=== PATIENT | female | born 1965 | race Caucasian/White ===

== ENCOUNTER 2019-01-02 09:38 | Day surgery (SDC) | payer MEDICARE, MEDICAID, SELFPAY | END 2019-01-02 09:40 | disposition home or self-care (01) | PROVIDERS: PCP Family Medicine; Visit Provider Specialist ==

== ENCOUNTER → 2019-02-07 08:38 | Outpatient (CLI) | payer MEDICARE, MEDICAID, SELFPAY ==
--- NOTE | 2019-02-07 | DI.MG.S_ITS ---
BILATERAL DIGITAL SCREENING MAMMOGRAM 3D/2D WITH CAD: 02/07/2019 CLINICAL: Routine screening. Family history of breast cancer. Comparison is made to exams dated: 02/06/2018 mammogram, 08/27/2013 mammogram, and 08/30/2006 mammogram - [facility]. There are scattered fibroglandular elements in both breasts. Current study was also evaluated with a Computer Aided Detection (CAD) system. No significant masses, calcifications, or other findings are seen in either breast. There has been no significant interval change. IMPRESSION: NEGATIVE There is no mammographic evidence of malignancy. A 1 year screening mammogram is recommended. This exam was interpreted at Station ID: [id number]. NOTE: For mammograms, a report in lay terms will be sent to the patient. Approximately 15% of breast malignancies will not be visualized mammographically. In the management of a palpable breast mass, a negative mammogram must not discourage biopsy of a clinically suspicious lesion. Electronically Signed By: Nazario bliss/lewis:02/07/2019 16:50:38 letter sent: Normal Exam ACR BI-RADS Category 1: Negative 3341F
== END ==
PROVIDERS: PCP Family Medicine; Visit Provider Family Medicine
DX: Z12.31 Encounter for screening mammogram for malignant neoplasm of breast (principal); Z80.3 Family history of malignant neoplasm of breast
CPT/HCPCS: 77063; 77067

== ENCOUNTER → 2020-02-11 15:10 | Outpatient (CLI) | payer MEDICARE, MEDICAID, SELFPAY ==
--- NOTE | 2020-02-11 15:12 | DI.MG.S_ITS ---
BILATERAL DIGITAL SCREENING MAMMOGRAM 3D/2D WITH CAD: 02/11/2020 CLINICAL: Routine screening. Family history of breast cancer. Comparison is made to exams dated: 02/07/2019 mammogram - [facility], 02/06/2018 mammogram, and 08/27/2013 mammogram - [facility]. There are scattered fibroglandular elements in both breasts. Current study was also evaluated with a Computer Aided Detection (CAD) system. No significant masses, calcifications, or other findings are seen in either breast. There has been no significant interval change. IMPRESSION: NEGATIVE There is no mammographic evidence of malignancy. A 1 year screening mammogram is recommended. This exam was interpreted at Station ID: [id number]. NOTE: For mammograms, a report in lay terms will be sent to the patient. Approximately 15% of breast malignancies will not be visualized mammographically. In the management of a palpable breast mass, a negative mammogram must not discourage biopsy of a clinically suspicious lesion. Electronically Signed By: Shannan walton/lewis:02/11/2020 16:03:27 letter sent: Normal Exam ACR BI-RADS Category 1: Negative 3341F
== END ==
PROVIDERS: PCP Family Medicine; Referring Provider Family Medicine; Visit Provider Family Medicine
DX: Z12.31 Encounter for screening mammogram for malignant neoplasm of breast (principal); Z80.3 Family history of malignant neoplasm of breast
CPT/HCPCS: 77063; 77067

== ENCOUNTER → 2021-07-14 09:34 | Outpatient (CLI) | payer MEDICARE, MEDICAID, SELFPAY ==
[2021-07-14 13:36] LABS: Alanine Aminotransferase 13 IU/L (<35); Albumin 4.5 g/dL (3.5-5.0); Albumin Globulin Ratio 1.4 (1.0-2.8); Alkaline Phosphatase 127 U/L (38-126); Aspartate Aminotransferase 28 IU/L (14-36); BUN Creatinine Ratio 19.8 (6-22); Bilirubin Total 0.4 mg/dL (0.2-1.3); Blood Urea Nitrogen 19 mg/dL (7-17); Calcium 9.4 mg/dL (8.4-10.2); Carbon Dioxide 27 mmol/L (22-32); Chloride 107 mmol/L (98-107); Estimated Glomerular Filt Rate > 60.0 mL/min (>60); Globulin 3.3 g/dL (1.7-4.1); Glucose 89 mg/dL (70-100); HEMOLYSIS < 15 (0-50); Potassium 5.3 mmol/L (3.4-5.1); Sodium 144 mmol/L (137-145); Total Protein 7.8 g/dL (6.3-8.2)
== END ==
PROVIDERS: PCP Family Medicine; Referring Provider Psychiatry & Neurology Psychiatry; Visit Provider Psychiatry & Neurology Psychiatry
DX: F32.9 Major depressive disorder, single episode, unspecified (principal)
CPT/HCPCS: 36415; 80053

== ENCOUNTER → 2022-04-13 13:53 | Outpatient (CLI) | payer MEDICARE, MEDICAID, SELFPAY ==
--- NOTE | 2022-04-13 13:54 | DI.MG.S_ITS ---
BILATERAL DIGITAL SCREENING MAMMOGRAM 3D/2D WITH CAD: 04/13/2022 CLINICAL: Routine screening. Comparison is made to exams dated: 02/11/2020 mammogram, 02/07/2019 mammogram - [facility], and 02/06/2018 mammogram - [facility]. There are scattered areas of fibroglandular density in both breasts (category b / 25%-50% glandular tissue). Current study was also evaluated with a Computer Aided Detection (CAD) system. No significant masses, calcifications, or other findings are seen in either breast. There has been no significant interval change. IMPRESSION: NEGATIVE There is no mammographic evidence of malignancy. A 1 year screening mammogram is recommended. Based on the Tyrer Cuzick model (a risk assessment model) the patient's lifetime risk is 9.7% and her 10 year risk is 2.9%. According to the ACR, ACS, and NCCN guidelines, an annual breast MRI exam along with mammogram is recommended if the patient's lifetime risk is 20% or greater. This exam was interpreted at Station ID: [id number]. NOTE: For mammograms, a report in lay terms will be sent to the patient. Approximately 15% of breast malignancies will not be visualized mammographically. In the management of a palpable breast mass, a negative mammogram must not discourage biopsy of a clinically suspicious lesion. Electronically Signed By: Mamta torres/lewis:04/13/2022 16:03:33 letter sent: Normal Exam ACR BI-RADS Category 1: Negative 3341F
== END ==
PROVIDERS: PCP Family Medicine; Referring Provider Family Medicine; Visit Provider Family Medicine
DX: Z12.31 Encounter for screening mammogram for malignant neoplasm of breast (principal)
CPT/HCPCS: 77063; 77067

== ENCOUNTER 2022-09-28 08:05 | Day surgery (SDC) | payer MEDICARE, MEDICAID, SELFPAY ==
[2022-09-28] VITALS (9 sets, daily range): BP systolic 112–133; BP diastolic 57–80; PULSE 55–82; RESP 14–20; TEMP 36.3–36.7; O2SAT 99–100; BMI 21.9
[2022-09-28] MEDS: LACTATED RINGERS 1,000 ML 200 ML IV (08:40)
--- NOTE | 2022-09-28 09:01 | P.HP_ITS ---
History of Present Illness History of Present Illness Date Patient Seen: 09/28/22 Time Patient Seen: 09:01 Chief complaint: Screening Colonoscopy Narrative: The patient presents for colorectal screening. They have never had any previous examination for such. No personal or family history of colon cancer. On further history denies any recent gastrointestinal symptoms. No nausea, vomiting, abdominal pain, loss of appetite, unexplained weight loss. [facility] Social History household members: family Smoking Status: Never smoker alcohol intake: never Meds Home Medications and Allergies Home Medications Medication Instructions Recorded Confirmed Type omeprazole 40 mg capsule,delayed 40 mg QDAY ##0 02/18/16 09/28/22 History release atorvastatin 20 mg tablet 20 mg PO DAILY 03/23/22 09/28/22 History lorazepam 0.5 mg tablet 0.5 mg PO BID PRN anxiety 30 days 07/01/22 09/28/22 Rx #60 tabs lorazepam 1 mg tablet 1 mg PO BID #60 tabs 07/01/22 09/28/22 Rx paroxetine HCl 40 mg tablet 40 mg PO QDAY #90 tabs 07/12/22 09/28/22 Rx carbamazepine 200 mg 400 mg PO TID #540 caps 07/27/22 09/28/22 Rx tablet,extended release,12 hr (Tegretol XR) topiramate 25 mg sprinkle capsule 25 mg PO BID #180 tabs 07/27/22 09/28/22 Rx trazodone 100 mg tablet 100 mg PO HS #90 tabs 07/27/22 07/27/22 Rx peg 3350-electrolytes 236 240 ml PO Q10M #4,000 mL 09/20/22 Rx gram-22.74 gram-6.74 gram-5.86 gram solution (Golytely) Allergies Allergy/AdvReac Type Severity Reaction Status Date / Time Sulfa (Sulfonamide Allergy Mild RASH Verified 09/28/22 08:20 Antibiotics) [SULFA (SULFONAMIDE ANTIBIOTICS)] codeine [CODEINE] Allergy Unknown Verified 09/28/22 08:20 adalimumab [From Humira] Allergy Rash Verified 09/28/22 08:20 Exam Vital Signs (past 8 hours): - 09/28/22 08:34 Temperature 98.0 F Pulse Rate 82 Respiratory Rate 16 Blood Pressure 133/80 Pulse Oximetry 100 Oxygen Delivery Method Room Air Oxygen Delivery Method Room Air Narrative Exam Narrative: Gen-Adult woman alert and oriented blind and hearing impaired Ext-WWP Assessment & Plan Assessment & Plan narrative: The patient requires colorectal screening and colonoscopy is recommended. Technical details were discussed. Risks, benefits, alternatives explained. Risks including but not limited to myocardial infarction, aspiration, bleeding, pain, missed lesion, incomplete examination, need for further radiographic studies, colonic perforation, and need for major abdominal surgery were discussed. All questions were answered to their satisfaction, and they are in agreement with this plan.
--- NOTE | 2022-09-28 09:31 | PM.OP.COLON ---
Operative Date/Time/Diagnoses Date of procedure: 09/28/22 Time of procedure: 09:31 Pre-op diagnosis: Colorectal screening Post-op diagnosis: same Procedure & Clinicians Study performed: Colonoscopy-aborted Same procedure as scheduled: Yes Indications: Colorectal screening Surgeon: Duane Jaquez Procedure Notes Procedure in detail: The history and physical was performed/updated and the patient is ASA class is 2. The procedure was discussed in detail with the patient. Potential risks complications including infection, bleeding, missed diagnosis, perforation, need for surgery, and were explained. Their questions were answered and informed consent was obtained. Patient was brought to the procedure room and placed standard monitoring equipment. The patient's vital signs were monitored continuously throughout the entire procedure. Prior to starting time-out was performed. The patient was placed in the left lateral recumbent position. Procedural sedation was administered by anesthesia. Examination began with a thorough inspection of the perianal area there was no evidence of fissures, fistulae, external hemorrhoids or cutaneous malignancy. The colonoscopy scope was then placed into the anal canal and was advanced forward. Despite irrigation the quality of the preparation was inadequate for safe and accurate performance of the procedure. Impression: Aborted colonoscopy Post-procedure Plan for aftercare: Contact the surgical clinic to schedule with alternative prep Disposition: same day surgery
[2022-09-28] MEDS: LORazepam 2 MG/ML INJ 0.5 MG IV (09:58)
--- NOTE | 2022-09-28 10:00 | SUR.PHASEI ---
Patient feels like she is going to have a seizure but not actively having a seizure. I spoke to Chito Chow CRNA on this case and stated he was okay if she got a dose of IV lorazepam in PACU. Jasmyn Roblero RN
== END 2022-09-28 10:45 | disposition home or self-care (01) ==
PROVIDERS: PCP Family Medicine; Referring Provider Surgery; Visit Provider Surgery
PROC: 0DJD8ZZ Inspection of Lower Intestinal Tract, Via Natural or Artificial Opening Endoscopic (ICD-10-PCS; CPT 45378; principal; 2022-09-28 09:00)
DX: Z12.11 Encounter for screening for malignant neoplasm of colon (principal); Z53.09 Procedure and treatment not carried out because of other contraindication
CPT/HCPCS: G0121; J2060

== ENCOUNTER 2023-03-14 15:01 | Inpatient (IN) | payer MEDICARE, OTHER, MEDICAID, SELFPAY ==
[2023-03-14] VITALS (27 sets, daily range): BP systolic 113–170; BP diastolic 49–86; PULSE 90–128; RESP 13–38; TEMP 36.6; O2SAT 93–100
--- NOTE | 2023-03-14 15:15 | DI.RAD.S_ITS ---
PROCEDURE: XR CHEST 1V INDICATIONS: suspected sepsis TECHNIQUE: One view of the chest was acquired. COMPARISON: None. FINDINGS: Surgical changes and devices: None. Lungs and pleura: Lungs are clear. No pleural effusions or pneumothorax. Mediastinum: Mediastinal contours appear normal. Heart size is normal. Bones and chest wall: No suspicious bony lesions. Overlying soft tissues appear unremarkable. IMPRESSION: No acute cardiopulmonary abnormality. Dictated by: Andrew Rodriguez M.D. on 03/14/2023 at 16:58 Approved by: Andrew Rodriguez M.D. on 03/14/2023 at 16:58
--- NOTE | 2023-03-14 15:28 | DI.CT.S_ITS ---
PROCEDURE: CT HEAD/BRAIN WO CON INDICATIONS: altered ms, hx seizure TECHNIQUE: Noncontrast 4.5 mm thick angled axial sections acquired from the foramen magnum to the vertex, with coronal and sagittal reformats. For radiation dose reduction, the following was used: automated exposure control, adjustment of mA and/or kV according to patient size. COMPARISON: None. FINDINGS: Image quality: Excellent. CSF spaces: Basal cisterns are patent. No extra-axial fluid collections. Ventricles are normal in size and shape. Brain: No midline shift. No intracranial masses or hemorrhage. Kiran-white matter interface is normal. Skull and face: Calvarium and visualized facial bones are intact, without suspicious lesions. Sinuses: Visualized sinuses and mastoids are clear. IMPRESSION: No acute intracranial pathology. Dictated by: Dasia Linares M.D. on 03/14/2023 at 16:06 Approved by: Dasia Linares M.D. on 03/14/2023 at 16:07
[2023-03-14 15:41] LABS: Add Manual Diff / Slide Review NO; Basophils Absolute Auto 0 /uL (0-100); Eosinophils Absolute Auto 0 /uL (0-450); Hematocrit 38.9 % (36-46); Hemoglobin 13.2 g/dL (12.0-16.0); Lymphocytes Absolute Auto 300 /uL (1100-4500); Lymphocytes Percent Auto 2.4 % (25-40); Mean Corpuscular HGB Conc 33.9 % (30-36); Mean Corpuscular Hemoglobin 33.2 PG (26-34); Mean Corpuscular Volume 97.7 fL (80-100); Monocytes Absolute Auto 1300 /uL (0-900); Neutrophils Absolute Auto 11000 /uL (1500-7000); Neutrophils Percent Auto 87.6 % (50-75); Platelet Count 317 X10^3/uL (150-400); Red Blood Cell Count 3.98 X10^6/uL (4.0-5.2); Red Cell Distribution Width 12.3 % (11.6-14.8); White Blood Cell Count 12.6 X10^3/uL (4.5-11.0)
[2023-03-14] MEDS: SODIUM CHLORIDE 0.9% 1,000 ML 1000 ML IV (15:45)
[2023-03-14 15:51] LABS: INR 1.1 (0.9-1.3); Prothrombin Time 12.9 SECONDS (9.4-12.5)
[2023-03-14 15:54] LABS: PTT Partial Thromboplastin Tim 26 SECONDS (25.1-36.5)
[2023-03-14 15:57] LABS: Alanine Aminotransferase 40 IU/L (<35); Albumin 4.3 g/dL (3.5-5.0); Albumin Globulin Ratio 1.2 (1.0-2.8); Alkaline Phosphatase 100 U/L (38-126); Aspartate Aminotransferase 67 IU/L (14-36); BUN Creatinine Ratio 53.1 (6-22); Bilirubin Total 0.6 mg/dL (0.2-1.3); Blood Urea Nitrogen 34 mg/dL (7-17); Carbon Dioxide 30 mmol/L (22-32); Chloride 98 mmol/L (98-107); Estimated Glomerular Filt Rate > 60 mL/min (>60); Globulin 3.7 g/dL (1.7-4.1); Glucose 296 mg/dL (70-100); HEMOLYSIS < 15 (0-50); Lipase 86 U/L (23-300); Sodium 139 mmol/L (137-145)
[2023-03-14 16:03] LABS: Ethanol (ETOH) < 10 mg/dL
[2023-03-14 16:13] LABS: Procalcitonin 0.08 ng/mL (<0.5)
--- NOTE | 2023-03-14 16:21 | PC.NURSE ---
PT A&Ox1 to self, pt is mumbling words and is rambling. Pt is completely blind. Pt's niece states she is the pt's caregiver. Niece is not the best historian. She does state that over the last few days she has stopped eating, drinking, and taking medications. Pt has a pressure wound on coccyx. [employer] consult plcaed.
[2023-03-14 16:22] LABS: Appearance Urine UA CLEAR; Bilirubin Urine UA 1+ (NEGATIVE); Color Urine UA YELLOW; Glucose Urine UA 2+ g/dL (Negative); Ketones Urine UA 3+ (NEGATIVE); Leukocyte Esterase Urine UA NEGATIVE (NEGATIVE); Nitrite Urine UA NEGATIVE (Negative); Occult Blood Urine UA NEGATIVE (Negative); Protein Urine UA 1+ (Negative); Specific Gravity Urine UA 1.025 (1.000-1.035)
[2023-03-14 16:23] LABS: pH Urine UA 5.5 (4.5-8.0)
[2023-03-14 16:34] LABS: Bacteria Urine None Seen; Culture Indicated Urine Cult Not Indicated; RBC Urine None Seen (0-5/HPF); Squamous Epithelial Cell Urine 0-1 /HPF (0-5/HPF); WBC Urine None Seen (0-5/HPF)
[2023-03-14 16:40] LABS: UR Morphine/Opiate cutoff 300 Negative (Negative); Urine Amphetamines Negative (Negative); Urine Barbiturates Negative (Negative); Urine Benzodiazepines Negative (Negative); Urine Cocaine Negative (Negative); Urine MDMA Negative (Negative); Urine Methamphetamines Negative (Negative); Urine Phencyclidine Negative (Negative); Urine Tetrahydrocannabinol Positive (Negative)
[2023-03-14 16:41] LABS: Urine Methadone Negative (Negative); Urine Oxycodone Negative (Negative); Urine Tricyclic Antidepressant Negative (Negative)
[2023-03-14 17:17] LABS: Reflexed Lactate in 2 Hours Y
[2023-03-14 17:55] LABS: Lactate 2HR (Lactic Acid Rflx) 1.5 mmol/L (0.7-2.1)
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
--- NOTE | 2023-03-14 18:39 | PC.NURSE ---
Pt continues to ramble to herself, and states she thinks her teeth and tonsils were removed, pt then opens mouth to try and show me. RN attempts to re-orient pt. Pt also counts out loud and increases her rate of breathing, when RN asks pt to slow breathing and to breath in through her nose and out her mouth, pt is able to slow rate of breathing.
--- NOTE | 2023-03-14 20:20 | DI.US.S_ITS ---
PROCEDURE: US ABDOMEN LIMITED INDICATIONS: ABNORMAL LIVER LABS TECHNIQUE: Real-time focused scanning was performed of the abdomen, with image documentation. COMPARISON: None. FINDINGS: Liver is normal in size and echogenicity. Gallbladder contains multiple tiny shadowing gallstones and gallbladder sludge. No gallbladder wall thickening or pericholecystic fluid. Sonographic Baugh sign is negative. Gallbladder adenomyomatosis also noted. No intrahepatic biliary ductal dilatation. Common bile duct is borderline in size and measures 7 mm in diameter. Visualized portions of the pancreas are unremarkable. No free fluid in the right upper quadrant. IMPRESSION: Cholelithiasis without signs of acute cholecystitis. Common bile duct is upper limits of normal in size. Approved by: Yovany Arteaga M.D. on 03/14/2023 at 23:41
[2023-03-14] MEDS: KETOROLAC 30 MG/ML VIAL 15 MG IV (20:57)
[2023-03-15 00:38] VITALS: BMI 18.1
[2023-03-15 00:51] VITALS: BP 131/75; PULSE 81; RESP 16; TEMP 36.6; O2SAT 98
[2023-03-15] MEDS: SODIUM CHLORIDE 0.9% 1,000 ML 100 ML IV (01:12)
[2023-03-15] MEDS: TRAZODONE 50 MG TABLET 100 MG PO ×2 (01:15→21:15)
--- NOTE | 2023-03-15 02:13 | P.HP_ITS ---
History of Present Illness History of Present Illness Chief complaint: Confused, epileptic, NO appetite Narrative: 57 years old female with history of longstanding depression, anxiety, sleep disturbance, chronic hearing loss more on the right side, blind requiring assistance, hyperlipidemia, GERD, seizure presented to the ER with altered mental status.. She lives with her niece who is her primary caregiver and there was a concern that the niece is trying to get into her medications. She has not been taking her medications in the last couple of days. Reports some nausea but no vomiting, no fever no shortness of breath. She has been seen by her psychiatrist recently and there was not any change of her home medications. The patient was increasingly anxious because of her knees and knees both have substance issue problems. In the ER her initial labs showed WBC 12.6, H&H 13.2?38.9, platelets 317, INR 1.1, sodium 139, potassium 4, creatinine 0.64, blood sugar 296, lactic acid 1.5, UA negative, AST/ALT 67/40, UA negative, U tox positive for THC, chest x-ray normal, CT of the head unremarkable, abdominal ultrasound shows cholelithiasis but no signs of acute cholecystitis. In the ER she was given ketorolac 15 mg IV, NS 1 L bolus and was decided to be admitted for observation. [facility] Social History household members: family Smoking Status: Never smoker alcohol intake: never Meds Home Medications and Allergies Home Medications Medication Instructions Recorded Confirmed Type omeprazole 40 mg capsule,delayed 40 mg QDAY ##0 02/18/16 09/28/22 History release atorvastatin 20 mg tablet 20 mg PO DAILY 03/23/22 09/28/22 History carbamazepine 200 mg 400 mg (2 x 200 mg) PO TID #540 07/27/22 09/28/22 Rx tablet,extended release,12 hr caps (Tegretol XR) topiramate 25 mg sprinkle capsule 25 mg PO BID #180 tabs 07/27/22 09/28/22 Rx trazodone 100 mg tablet 100 mg PO HS #90 tabs 07/27/22 07/27/22 Rx lorazepam 0.5 mg tablet 0.5 mg PO BID PRN anxiety 30 days 12/27/22 Rx #60 tabs lorazepam 1 mg tablet 1 mg PO BID #60 tabs 12/27/22 Rx paroxetine HCl 40 mg tablet 40 mg PO QDAY #90 tabs 01/19/23 Rx Allergies Allergy/AdvReac Type Severity Reaction Status Date / Time Sulfa (Sulfonamide Allergy Mild RASH Verified 03/14/23 15:13 Antibiotics) [SULFA (SULFONAMIDE ANTIBIOTICS)] codeine [CODEINE] Allergy Unknown Verified 03/14/23 15:13 adalimumab [From Humira] Allergy Rash Verified 03/14/23 15:13 Review of Systems Review of Systems ROS: Yes All systems reviewed with the patient and are negative except as otherwise documented Constitutional Constitutional: Reports as per HPI and Reports system reviewed and no additional complaints, except as documented Eyes Eyes: Reports as per HPI and Reports system reviewed and no additional complaints, except as documented ENT Ears, Nose, Mouth, and Throat: Yes as per HPI and Yes system reviewed and no additional complaints, except as documented Cardiovascular Cardiovascular: Reports system reviewed and no additional complaints, except as documented Respiratory Respiratory: Reports system reviewed and no additional complaints, except as documented Gastrointestinal Gastrointestinal: Reports system reviewed and no additional complaints, except as documented Genitourinary Genitourinary: Reports system reviewed and no additional complaints, except as documented Musculoskeletal Musculoskeletal: Reports system reviewed and no additional complaints, except as documented, Reports abnormal gait and Reports numbness Neurologic Neurologic: Reports system reviewed and no additional complaints, except as documented, Reports abnormal gait, Reports confusion and Reports numbness Psychiatric Psychiatric: Reports system reviewed and no additional complaints, except as documented and Reports confusion Exam Vital Signs (past 8 hours): - 03/14/23 18:30 03/14/23 18:31 03/14/23 18:31 Temperature Pulse Rate 97 H 97 H Respiratory Rate 36 H 36 H Blood Pressure 130/61 Pulse Oximetry 97 98 Oxygen Flow Rate 03/14/23 19:00 03/14/23 19:01 03/14/23 19:05 Temperature Pulse Rate 95 H 94 H Respiratory Rate 32 H Blood Pressure 144/72 H Pulse Oximetry 98 96 Oxygen Flow Rate 03/14/23 19:05 03/14/23 19:30 03/14/23 20:00 Temperature Pulse Rate 100 H 92 H Respiratory Rate 38 H Blood Pressure 127/73 Pulse Oximetry 98 97 Oxygen Flow Rate 03/14/23 20:00 03/14/23 20:30 03/14/23 21:00 Temperature Pulse Rate 96 H 90 Respiratory Rate 34 H 28 H Blood Pressure 122/67 Pulse Oximetry 95 Oxygen Flow Rate 03/14/23 21:00 03/14/23 21:30 03/14/23 22:00 Temperature Pulse Rate 92 H 98 H 123 H Respiratory Rate 32 H 28 H 32 H Blood Pressure Pulse Oximetry 99 98 97 Oxygen Flow Rate 03/14/23 22:30 03/14/23 23:00 03/14/23 23:10 Temperature Pulse Rate 123 H 96 H Respiratory Rate 23 29 H Blood Pressure 130/61 Pulse Oximetry 98 97 Oxygen Flow Rate 03/14/23 23:10 03/14/23 23:30 03/15/23 00:51 Temperature 97.8 F Pulse Rate 96 H 100 H 81 Respiratory Rate 31 H 27 H 16 Blood Pressure 131/75 Pulse Oximetry 97 97 98 Oxygen Flow Rate 0 Oxygen Delivery Method Room Air Oxygen Flow Rate 0 Const General: cooperative, comfortable and well developed Orientation: alert and oriented x3 HENMT Head: normal to inspection, normocephalic and atraumatic Face and sinus: normal facial exam Mouth: oral mucosae normal and moist mucous membranes Throat: posterior oropharynx normal Eyes General: appearance normal, both eyes and all related structures Pupils: PERRL EOM: EOM intact bilaterally Neck Neck: normal visual inspection and full ROM Chest Chest: normal inspection of the chest Resp Effort & Inspection: normal respiratory effort and able to speak in complete sentences Auscultation: clear to auscultation bilaterally Cardio Palpation: normal PMI Rate: regular rate Rhythm: regular rhythm Heart Sounds: S1 normal and S2 normal GI Inspection: normal to inspection Palpation: soft and no hepatosplenomegaly Auscultation: normal bowel sounds Skin General: no rashes or lesions noted Lesions: no lesions Rashes: no rashes Trauma: no lacerations or abrasions Neuro General: patient alert, patient awake, patient oriented x3 and no focal motor deficits Cranial Nerves: CN's II-XI intact bilaterally Cognition: normal cognition Speech: speech normal Gait: normal gait Motor: muscle tone normal throughout Sensory Exam: no sensory deficits noted Extrem General: full ROM and no calf tenderness Psych Appearance: grossly normal Mental Status: mental status grossly normal Speech and Movement: speech and movement normal Objective Labs 03/14/23 15:26 03/14/23 15:26 Labs: Laboratory Results - last 24 hr 12/04/23 12/04/23 12/04/23 15:26 16:10 17:30 WBC 12.6 H RBC 3.98 L Hgb 13.2 Hct 38.9 MCV 97.7 MCH 33.2 MCHC 33.9 RDW 12.3 Plt Count 317 Neut % (Auto) 87.6 H Lymph % (Auto) 2.4 L [place] % (Auto) 10.0 Eos % (Auto) 0.0 L Baso % (Auto) 0.0 Neut # (Auto) 15176 H Lymph # (Auto) 300 L [place] # (Auto) 1300 H Eos # (Auto) 0 Baso # (Auto) 0 PT 12.9 H INR 1.1 APTT 26 Sodium 139 Potassium 4.0 Chloride 98 Carbon Dioxide 30 BUN 34 H Creatinine 0.64 Estimated GFR > 60 BUN/Creatinine Ratio 53.1 H Glucose 296 H Lactate 4.0 H 1.5 Calcium 10.0 Total Bilirubin 0.6 AST 67 H ALT 40 H Alkaline Phosphatase 100 Total Protein 8.0 Albumin 4.3 Globulin 3.7 Albumin/Globulin Ratio 1.2 Lipase 86 Procalcitonin 0.08 Urine Color Yellow Urine Appearance Clear Urine pH 5.5 Ur Specific [place] 1.025 Urine Protein 1+ H Urine Glucose (UA) 2+ H Urine Ketones 3+ H Urine Occult Blood Negative Urine Nitrate Negative Urine Bilirubin 1+ H Ur Bilirubin Confirm Cancelled Urine Urobilinogen 1.0 Ur Leukocyte Esterase Negative Urine RBC None seen Urine WBC None seen Ur Squamous Epith Cells 0-1 /hpf Urine Bacteria None seen Ur Culture Indicated? Cult not indicated U Opiates 300ng/mL cut Negative Ur Oxycodone Screen Negative Urine Methadone Screen Negative Ur Barbiturates Screen Negative U Tricyclic Antidepress Negative Ur Phencyclidine Scrn Negative Ur Amphetamines Screen Negative U Methamphetamines Scrn Negative Ur MDMA Scrn (Ecstasy) Negative U Benzodiazepines Scrn Negative Urine Cocaine Screen Negative U Marijuana (THC) Screen Positive H Ethyl Alcohol < 10 Assessment & Plan Assessment and plan (1) AMS (altered mental status): Problem details: Unclear etiology and baseline Status: Acute Plan: Monitor her mentation Restart her home medications Avoid any sedation causing alteration of her mentation (2) Hyperglycemia: Status: Acute Plan: ADA diet, SSI, monitor blood glucoses ACHS (3) Generalized anxiety disorder: Status: Acute Plan: Restart lorazepam as needed and paroxetine (4) Insomnia: Qualifiers: Insomnia type: other insomnia Qualified Code(s): G47.09 - Other insomnia Status: Chronic Plan: Melatonin as needed (5) Major depressive disorder, recurrent, moderate: Status: Chronic Plan: Restart paroxetine (6) Seizure disorder: Status: Acute Plan: Restart topiramate (7) GERD (gastroesophageal reflux disease): Status: Acute Plan: Restart PPI (8) Hyperlipidemia: Status: Acute Plan: Restart statins Time Spent With Patient Time with patient: 50 to 69 minutes with 50% spent counseling/coordinating care Quality VTE Deep Vein Thrombosis/Pulmonary Embolism Present on Admission: No MIPS - Admit I confirm the patient?s Advance Care Plan is present, Code status is documented, Surrogate decision maker is in patient?s record [If Yes, STOP here]: Yes MIPS - Meds 'Current medications' to include all prescriptions, [id number] products, herbals, cannabis/cannabidiol products, and vitamin/mineral/dietary (nutritional) supplements. I have utilized all available resources to obtain, update, or review the patient?s current medications. [If Yes, STOP here]: Yes
--- NOTE | 2023-03-15 03:51 | PC.NURSE ---
Addendum entered by Arielle Street R.N. 03/15/23 05:55: Pressure injury superficial & scabbed, cleansed with NS pat dry & allevyn dressings apllied. Original Note: Pt. admitted to room 214, oriented to self only & date. Admit assessment not complete R/T patient confusion. Family member did not come with her to the floor. Pt. sleeping most of the his shift bed was padded for seizures precaution & bed alarm activated. Will cont. plan of care & monitor.
[2023-03-15 07:53] VITALS: BP 135/72; PULSE 84; RESP 17; TEMP 37.1; O2SAT 98
[2023-03-15] MEDS: carBAMazepine XR 100 MG TAB 400 MG PO ×3 (09:12→21:15)
[2023-03-15] MEDS: PARoxetine 20 MG TABLET 40 MG PO (09:12)
[2023-03-15] MEDS: ATORVASTATIN 20 MG TABLET PO (09:12)
[2023-03-15] MEDS: TOPIRAMATE 25 MG TABLET PO ×2 (09:13→21:15)
[2023-03-15 09:20] LABS: Alanine Aminotransferase 27 IU/L (<35); Albumin 3.1 g/dL (3.5-5.0); Albumin Globulin Ratio 1.1 (1.0-2.8); Alkaline Phosphatase 70 U/L (38-126); Aspartate Aminotransferase 50 IU/L (14-36); BUN Creatinine Ratio 48.1 (6-22); Bilirubin Total 0.6 mg/dL (0.2-1.3); Blood Urea Nitrogen 26 mg/dL (7-17); Calcium 8.8 mg/dL (8.4-10.2); Carbon Dioxide 26 mmol/L (22-32); Chloride 106 mmol/L (98-107); Estimated Glomerular Filt Rate > 60 mL/min (>60); Globulin 2.8 g/dL (1.7-4.1); Glucose 105 mg/dL (70-100); HEMOLYSIS < 15 (0-50); Potassium 3.7 mmol/L (3.4-5.1); Sodium 139 mmol/L (137-145); Total Protein 5.9 g/dL (6.3-8.2)
[2023-03-15 10:16] LABS: Ammonia (NH3) < 9 umol/L (9-30)
[2023-03-15] MEDS: INSULIN LISPRO 100 UNIT/ML 3ML VIAL SUBCUT ×2 (13:17→17:54)
[2023-03-15 15:00] VITALS: BP 151/74; PULSE 101; RESP 14; TEMP 37.1; O2SAT 95
--- NOTE | 2023-03-15 15:26 | P.PN_ITS ---
Subjective Subjective Interval history: 57 years old female with history of longstanding depression, anxiety, sleep disturbance, chronic hearing loss more on the right side, blind requiring assistance, hyperlipidemia, GERD, seizure presented to the ER with altered mental status. It is not entirely clear as to the etiology but is suspected to be toxic/metabolic at this time. She was able to eat with assistance today, oriented only to person though baseline mentation is unknown. Exam Vital Signs (past 8 hours): - 03/15/23 07:53 Temperature 98.7 F Pulse Rate 84 Respiratory Rate 17 Blood Pressure 135/72 Pulse Oximetry 98 Oxygen Flow Rate 0 Oxygen Delivery Method Room Air Oxygen Flow Rate 0 Narrative Exam Narrative: Gen: lethargic appearing female, falls asleep easily but no acute distress CV: RRR no m/r/g Pulm: CTA b/l Abd; S NT ND Ext; No edema Neuro: oriented to name only, does not know date or month or location Objective Labs 03/14/23 15:26 03/15/23 08:31 Labs: Laboratory Results - last 24 hr 03/14/23 03/14/23 03/14/23 15:26 16:10 17:30 WBC 12.6 H RBC 3.98 L Hgb 13.2 Hct 38.9 MCV 97.7 MCH 33.2 MCHC 33.9 RDW 12.3 Plt Count 317 Neut % (Auto) 87.6 H Lymph % (Auto) 2.4 L [place] % (Auto) 10.0 Eos % (Auto) 0.0 L Baso % (Auto) 0.0 Neut # (Auto) 79358 H Lymph # (Auto) 300 L [place] # (Auto) 1300 H Eos # (Auto) 0 Baso # (Auto) 0 PT 12.9 H INR 1.1 APTT 26 Sodium 139 Potassium 4.0 Chloride 98 Carbon Dioxide 30 BUN 34 H Creatinine 0.64 Estimated GFR > 60 BUN/Creatinine Ratio 53.1 H Glucose 296 H Lactate 4.0 H 1.5 Calcium 10.0 Total Bilirubin 0.6 AST 67 H ALT 40 H Alkaline Phosphatase 100 Ammonia Total Protein 8.0 Albumin 4.3 Globulin 3.7 Albumin/Globulin Ratio 1.2 Lipase 86 Procalcitonin 0.08 Urine Color Yellow Urine Appearance Clear Urine pH 5.5 Ur Specific [place] 1.025 Urine Protein 1+ H Urine Glucose (UA) 2+ H Urine Ketones 3+ H Urine Occult Blood Negative Urine Nitrate Negative Urine Bilirubin 1+ H Ur Bilirubin Confirm Cancelled Urine Urobilinogen 1.0 Ur Leukocyte Esterase Negative Urine RBC None seen Urine WBC None seen Ur Squamous Epith Cells 0-1 /hpf Urine Bacteria None seen Ur Culture Indicated? Cult not indicated U Opiates 300ng/mL cut Negative Ur Oxycodone Screen Negative Urine Methadone Screen Negative Ur Barbiturates Screen Negative U Tricyclic Antidepress Negative Ur Phencyclidine Scrn Negative Ur Amphetamines Screen Negative U Methamphetamines Scrn Negative Ur MDMA Scrn (Ecstasy) Negative U Benzodiazepines Scrn Negative Urine Cocaine Screen Negative U Marijuana (THC) Screen Positive H Ethyl Alcohol < 10 03/15/23 03/15/23 08:31 09:45 WBC RBC Hgb Hct MCV MCH MCHC RDW Plt Count Neut % (Auto) Lymph % (Auto) [place] % (Auto) Eos % (Auto) Baso % (Auto) Neut # (Auto) Lymph # (Auto) [place] # (Auto) Eos # (Auto) Baso # (Auto) PT INR APTT Sodium 139 Potassium 3.7 Chloride 106 Carbon Dioxide 26 BUN 26 H Creatinine 0.54 Estimated GFR > 60 BUN/Creatinine Ratio 48.1 H Glucose 105 H D Lactate Calcium 8.8 Total Bilirubin 0.6 AST 50 H ALT 27 Alkaline Phosphatase 70 Ammonia < 9 L Total Protein 5.9 L Albumin 3.1 L Globulin 2.8 Albumin/Globulin Ratio 1.1 Lipase Procalcitonin Urine Color Urine Appearance Urine pH Ur Specific [place] Urine Protein Urine Glucose (UA) Urine Ketones Urine Occult Blood Urine Nitrate Urine Bilirubin Ur Bilirubin Confirm Urine Urobilinogen Ur Leukocyte Esterase Urine RBC Urine WBC Ur Squamous Epith Cells Urine Bacteria Ur Culture Indicated? U Opiates 300ng/mL cut Ur Oxycodone Screen Urine Methadone Screen Ur Barbiturates Screen U Tricyclic Antidepress Ur Phencyclidine Scrn Ur Amphetamines Screen U Methamphetamines Scrn Ur MDMA Scrn (Ecstasy) U Benzodiazepines Scrn Urine Cocaine Screen U Marijuana (THC) Screen Ethyl Alcohol [facility] Social History household members: family Smoking Status: Never smoker alcohol intake: never Assessment & Plan Assessment & Plan narrative: # acute toxic and/or metabolic encephalopathy. - suspect most likely etiology given presentation with tachycardia and confusion is benzo withdrawal, there are documented concerns extensively in patient's chart regarding possible diversion of patient's benzodiazepines. - also possibly is post ictal but no evidence of seizure and no prolactin checked on admission - continue home benzos, appears to be improving - ammonia checked and was <9. UA negative and no obvious signs or symptoms of infection. - UDS + for marijuana #Hyperglycemia: - possibly related to stress response? Unclear and glucose has been a bit on the low side. - continue to monitor today, possible cessation if glucose remains okay. #Generalized anxiety disorder: - continue home paroxetine 40 mg #Insomnia: - continue home medications #Major depressive disorder, recurrent, moderate: continue home paroxetine, follows with Dr. Fitzgerald. # Seizure disorder: - continue home topiramate and carbamazepine - ativan prn for seizure activity if any develops. #GERD (gastroesophageal reflux disease): - continue PPI # Hyperlipidemia: continue home atorvastatin 20 mg Code: Full, Dispo: Anticipate probably home, may need PT/OT depending on baseline function and how encephalopathy improves, APS referral sent in the ER Discussed with case management to add additional history and formulate the above assessment and plan. Quality VTE Deep Vein Thrombosis/Pulmonary Embolism Present on Admission: No
[2023-03-15 23:00] VITALS: BP 122/72; PULSE 97; RESP 16; TEMP 36.8; O2SAT 98
--- NOTE | 2023-03-16 04:37 | PC.WOUNDPHOT ---
A. Left Bicep B. Right Bicep C. Right Bicep D. Left Bicep
[2023-03-16] MEDS: ATORVASTATIN 20 MG TABLET PO (09:20)
[2023-03-16 09:27] LABS: Alanine Aminotransferase 26 IU/L (<35); Albumin Globulin Ratio 1.1 (1.0-2.8); Alkaline Phosphatase 72 U/L (38-126); Aspartate Aminotransferase 42 IU/L (14-36); BUN Creatinine Ratio 25.9 (6-22); Bilirubin Total 0.5 mg/dL (0.2-1.3); Blood Urea Nitrogen 14 mg/dL (7-17); Calcium 8.9 mg/dL (8.4-10.2); Carbon Dioxide 27 mmol/L (22-32); Chloride 106 mmol/L (98-107); Estimated Glomerular Filt Rate > 60 mL/min (>60); Globulin 2.7 g/dL (1.7-4.1); Glucose 81 mg/dL (70-100); HEMOLYSIS < 15 (0-50); Potassium 3.7 mmol/L (3.4-5.1); Sodium 138 mmol/L (137-145); Total Protein 5.7 g/dL (6.3-8.2)
--- NOTE | 2023-03-16 11:44 | PM.PN.1 ---
Subjective Subjective Interval history: 57 years old female with history of longstanding depression, anxiety, sleep disturbance, chronic hearing loss more on the right side, blind requiring assistance, hyperlipidemia, GERD, seizure presented to the ER with altered mental status. It is not entirely clear as to the etiology at this time but benzo withdrawal was suspected initially. Today she is talkative but refusing medications. Yesterday she was much improved. She keeps her arms by her chest and answers questions with the least information possible today. I did reach out for psychiatry assistance today, hoping to gain additional recommendations on either medication management or if this is a recurrence of her depression, etc. Exam Vital Signs (past 8 hours): Oxygen Delivery Method Room Air Oxygen Flow Rate 0 Narrative Exam Narrative: Gen: annoyed and irritable, keeps hands close to chest, will not allow any exam Neuro: oriented to name only, does not know date or month or location Objective Labs 03/14/23 15:26 03/16/23 08:11 Labs: Laboratory Results - last 24 hr 03/16/23 08:11 Sodium 138 Potassium 3.7 Chloride 106 Carbon Dioxide 27 BUN 14 Creatinine 0.54 Estimated GFR > 60 BUN/Creatinine Ratio 25.9 H Glucose 81 Calcium 8.9 Total Bilirubin 0.5 AST 42 H ALT 26 Alkaline Phosphatase 72 Total Protein 5.7 L Albumin 3.0 L Globulin 2.7 Albumin/Globulin Ratio 1.1 PFSH Social History household members: family Smoking Status: Never smoker alcohol intake: never Assessment & Plan Assessment & Plan narrative: # acute toxic and/or metabolic encephalopathy. - suspect most likely etiology given presentation with tachycardia and confusion is benzo withdrawal, there are documented concerns extensively in patient's chart regarding possible diversion of patient's benzodiazepines. - also possibly is post ictal but no evidence of seizure and no prolactin checked on admission - continue home benzos, and was improving but today is more annoyed and reserved. I have asked for psychiatry assistance in evaluation as depression or anxiety with psychosis could be in her differential. - ammonia checked and was <9. UA negative and no obvious signs or symptoms of infection. - UDS + for marijuana #Hyperglycemia: - possibly related to stress response? Unclear and glucose has been a bit on the low side. - has been stable the last 24 hours or so, can stop trending. #Generalized anxiety disorder: - continue home paroxetine 40 mg #Insomnia: - continue home medications #Major depressive disorder, recurrent, moderate: continue home paroxetine, follows with Dr. Fitzgerald. # Seizure disorder: - continue home topiramate and carbamazepine - ativan prn for seizure activity if any develops. #GERD (gastroesophageal reflux disease): - continue PPI # Hyperlipidemia: continue home atorvastatin 20 mg Code: Full, Dispo: Anticipate probably home, may need PT/OT depending on baseline function and how encephalopathy improves, APS referral sent in the ER Discussed with case management to add additional history and formulate the above assessment and plan. Quality VTE Deep Vein Thrombosis/Pulmonary Embolism Present on Admission: No
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
--- NOTE | 2023-03-16 14:11 | CM.DANOTE ---
Initial Discharge Plan Assessment Note: Patient is a 57 yo female. According to chart review, long standing hx of depression, anxiety, sleep disturbance and seizure disorder managed by Neurologist Dr Suresh . In addition, chronic hearing loss and blindness since . Patient presents to the ED with oly for confusion and epileptic w/ lack of appetite. Per chart review, Patient established with psychiatrist DR Fitzgerald, last visit 01.24.23. According to DR Fitzgerald's note, patient has a long standing, toxic hx with oly Goldberg who patient has reported to be stealing patient's prescribed benzos. Ashlyn and her are reported as drug users. Currently no known restraining order or request from patient for no visitors, niece allowed at bedside. APS report completed in the ER by Mirian Cortés. Online Report Confirmation Number: [id number] PCP: Nicolas Collazo Payer: NARCISA MARRERO/TONA Initial assessment completed with information gleaned from the chart and during an interview at bedside with Oly Coleman P# [phone]. Patient currently w/closed eyes at all times w/ non-sensical speech. According to oly Goldberg, patient was retrieved from an adult family home in [place] by her brother in law Ezra P# [phone] and sister many years ago and has been living with family in [place] since that time. Patient currently lives with her ex ZACHARY Ezra, Ezra's daughter/patient's niece Ashlyn and Ashlyn's son Vinicius. Patient has required assistance with most ADLs r/t YUROK and blindness. Oly Goldberg denies cognitive deficit at baseline, saying that patient's altered mental status, confusion and acting in an alternate reality is new. Nimaykel anticipates patient will return home upon discharge. No hx of HH or SNF per niece. Requested DPOA ppk, oly Goldberg says this has been done already and she will work on obtaining a copy. Ashlyn does not report who is POA currently. This REEL SLITTER requested ANURAG العلي investigate patient's outpatient clinics to seek information about DPOA. According to Zohra- PCP DR Collazo's office has Ezra Munoz listed as patient's only contact P# [phone] but no DPOA ppk on file. [facility] also did not have POLST, DPOA or advanced. Placed call to ZACHARY Munguia, left message requesting call back. Plan: Discharge plan and dispo recommendations will depend on clinical course, therapy recommendations and available dispo options for patient. CM team will plan to follow closely. Follow up with APS will be helpful once assigned to an APS forensic investigator. GLADYS Sherman Discharge Planning/Care Management CM Discharge Assessment Start: 03/16/23 13:00 Freq: Status: Active Protocol: Document 03/16/23 13:00 SHARIF (Rec: 03/16/23 13:11 [id number]) Discharge Planning Assessment Assigned L D Rn GLADYS Salas DPOA/Assigned Designee Name Unknown. There is discrepancy in the chart. See narrative. Advance Directives? No History Provided By Medical Record Prior Living Arrangements House Household Members family Type of transporation used prior to Relies on Others admit Independent with ADL's Yes Is patient alert and oriented? Yes Needs Assistance With Meal Prep,Managing Medications ,Home Chores / Shopping Patient/Family Preference Home with Home Health Barriers to Discharge Yes Transportation Arrangement TBD Additional Comment CM team will need to follow clinical course closely
[2023-03-16 15:00] VITALS: BP 133/82; PULSE 79; RESP 16; TEMP 36.6; O2SAT 98
[2023-03-16] MEDS: carBAMazepine XR 100 MG TAB 400 MG PO (15:40)
--- NOTE | 2023-03-16 16:41 | P.CONS_ITS ---
History of Present Illness Consult details Date Patient Seen: 03/16/23 Time Patient Seen: 16:00 Chief complaint: Confused, epileptic, NO appetite Reason for consult: Mental Status changes Requesting provider: Quirino Coker Narrative: The patient is well known to me as I treat her as an outpatient for her psychiatric issues. She is a 57-year-old unmarried female with a very long history of depression, anxiety, and sleep disturbance that date back many years. In addition, the patient has ongoing medical issues of a seizure disorder, chronic hearing loss, has been blind since , and requires assistance navigating into familiar territory. She is followed by neurologist Dr. Santhosh Suresh. Her depression anxiety and sleep disturbance have been managed for many many years with very skilled nursing use of lorazepam and paroxetine. She is been relatively stable with these medications and had done well on them as well as using the benzodiazepine prophylactically for seizures. The patient is cared for by her tw-hoqzrfr-eo-law and seemed to have a good supportive relationship. Unfortunately, her niece and her (the tevjzaq-fl-yez's daughter) are both substance users and described by the patient as frequent freeloaders who are often on housed, become intoxicated, and warm their way into the household tending to create chaos and various levels of drama. The patient reported that the apyvvsm-jh-kvm, Ezra, has a plan to fix up a home in [place] at some point in the future. However, she also reports that Ezra tells her there still lot of work to do in order to get the house ready to move in. In the last several months, the patient reported that difficulties with the niece and her boyfriend had gotten worse and that she suspected they were stealing her medication, particularly her benzodiazepine. Although she has tried to secure them and they are not easily accessible, she is also easily distracted and due to her disabilities can not always keep track of the knees in the boyfriend at all times. The patient presented to the emergency department with altered mental status and continued to report concerns regarding the niece and her boyfriend. The patient was treated in the emergency department and ultimately admitted for further evaluation. When I saw the patient initially on the late afternoon of 03/16/2023, she was unable to provide any sort of coherent history. I saw her again around noon on 03/17/2023 and she was slightly more coherent able to speak in complete sentences and could articulate her name and knew that she was at [facility]. However, she was also making statements about her ?? who is non-existent. Meds Home Medications and Allergies Home Medications Medication Instructions Recorded Confirmed Type atorvastatin 20 mg tablet 20 mg PO DAILY 03/23/22 03/15/23 History carbamazepine 200 mg 400 mg (2 x 200 mg) PO TID #540 07/27/22 03/15/23 Rx tablet,extended release,12 hr caps (Tegretol XR) topiramate 25 mg sprinkle capsule 25 mg PO BID #180 tabs 07/27/22 03/15/23 Rx trazodone 100 mg tablet 100 mg PO HS #90 tabs 07/27/22 03/15/23 Rx lorazepam 0.5 mg tablet 0.5 mg PO BID PRN anxiety 30 days 12/27/22 03/15/23 Rx #60 tabs paroxetine HCl 40 mg tablet 40 mg PO QDAY #90 tabs 01/19/23 03/15/23 Rx lorazepam 1 mg tablet 1 mg PO BID PRN Anxiety 03/15/23 03/15/23 History omeprazole 20 mg capsule,delayed 20 mg PO DAILY GERD 03/15/23 03/15/23 History release Allergies Allergy/AdvReac Type Severity Reaction Status Date / Time Sulfa (Sulfonamide Allergy Mild RASH Verified 03/14/23 15:13 Antibiotics) [SULFA (SULFONAMIDE ANTIBIOTICS)] codeine [CODEINE] Allergy Unknown Verified 03/14/23 15:13 adalimumab [From Humira] Allergy Rash Verified 03/14/23 15:13 Review of Systems Review of Systems ROS: Yes unobtainable due to mental status Exam Vital Signs (past 8 hours): Oxygen Delivery Method Room Air Oxygen Flow Rate 0 Narrative Exam Narrative: MENTAL STATUS EXAM * Appearance: The patient is a very slender, thin, almost cachectic appearing female who appears stated age. * Grooming: Initially seen dressed in hospital [facility] and lying in hospital bed on the xiong. * Eye Contact: The patient is blind * Behavior: Generally calm and cooperative but not coherent. * Motor Movement: Holds her arms in a somewhat contracted position up to her shoulders and chest. However, easily moved and not stiff. * Gait: Not tested * Speech: Somewhat slurred, soft in tone, frequently difficult to understand. * Mood: Do not know. * Affect: Rather somnolent, sedated, * Thought Process: Tangential and nonsensical initially. Later on somewhat linear and logical but variable. * Thought Content: No SI HI, intent, or plan. No evidence of psychosis at this time. * Attention: Variable attentiveness to the interview * Orientation: Oriented to person place, and some circumstance but not to time * Memory: Not tested * Insight: Poor * Judgment: Poor * Impulse Control: Poor on examination at this time. Objective Labs 03/17/23 09:08 03/17/23 08:11 Labs: Laboratory Results - last 24 hr 03/16/23 08:11 Sodium 138 Potassium 3.7 Chloride 106 Carbon Dioxide 27 BUN 14 Creatinine 0.54 Estimated GFR > 60 BUN/Creatinine Ratio 25.9 H Glucose 81 Calcium 8.9 Total Bilirubin 0.5 AST 42 H ALT 26 Alkaline Phosphatase 72 Total Protein 5.7 L Albumin 3.0 L Globulin 2.7 Albumin/Globulin Ratio 1.1 PFSH Social History marital status: unmarried,single household members: family and caregiver (Lives with ex amfxovg-ax-iee who is been her magneto specialist for several years) lives independently: No caregiver/support person: Yes housing: house pets and animals: No education level: high school occupational status: disabled Tobacco & Substance Use Smoking Status: Never smoker alcohol intake: never Assessment & Plan Assessment and plan (1) Acute metabolic encephalopathy: Status: Acute (2) Seizure disorder: Status: Acute (3) Major depressive disorder, recurrent, moderate: Status: Chronic (4) Generalized anxiety disorder: Status: Acute Assessment & Plan narrative: Patient is a 57-year-old female with a long history of depression, anxiety, and sleep disturbance in the context of fairly significant seizure disorder and disabilities that include blindness from and chronic hearing loss in her right ear. The patient has been on both psychiatric medications and seizure medications for many years and had been stable. I have followed the patient for the past year and a half and noted relative stability with good control of mood and anxiety symptoms as well as seizures symptoms with her usual medication regimen. In recent weeks, the patient became concerned that her medications, particularly the benzodiazepines, may have been pilfered by relatives who frequently visits her home. Although there is a chance that this may be delusional, the patient has no prior history of psychotic symptoms nor has she demonstrated any difficulty with paranoia in the last several years that she is been seen in our clinic. The chaos that she described to both me and her previous psychiatric provider, have been consistent themes for many years and are most likely true, or at the very least require some investigation. RECOMMENDATIONS: 1. Resume prior outpatient medication regimen including both psychiatric and neurologic medications. If above noted speculation is true than her mental status may be explained by being in withdrawal. 2. Recommend that inpatient social work contact adult protective Services to investigate possible threats to a vulnerable adult. 3. Continue seizure precautions as you are doing. 4. We will continue to follow with you and provide serial mental status observations as patient's mental status clears. Time Spent With Patient Time with patient: 30 to 49 minutes with 50% spent counseling/coordinating care
--- NOTE | 2023-03-16 19:33 | PC.NURSE ---
Patient remains with both eyes closed today, she appears to be sleeping but is easily awakened. At times she will answer simple questions, or say thank you to a warm blanket. She refuses to eat breakfast this a.m. BG 76 with morning check. She refused initially to take medications in applesauce but upon reapproaching in the afternoon she opened her mouth for pills in applesauce and swallowed. She also drank one protein shake. She had overall very poor intake and declined to take anything else this evening, although shake offered again along with dinner. MD Fitzgerald at bedside evaluated patient this evening. Continuous monitoring.
--- NOTE | 2023-03-16 21:44 | PC.NURSE ---
Pt. refused to take her medications. Will approach her later, will continue plan of care & mnitor
--- NOTE | 2023-03-16 22:46 | PC.NURSE ---
Another RN. coordinator Lisa tried to administer her HS medications & I tried to approach her again twice. But she closes her mouth tightly & turned her head away. Dr. Ortiz notified via message & ordered to monitor for now & address in morning. Will continue plan of care & monitor.
[2023-03-16 23:00] VITALS: BP 142/78; PULSE 82; RESP 16; TEMP 37.1; O2SAT 97
--- NOTE | 2023-03-17 07:58 | CM.DPNOTE ---
DCP Cont Call received from patient's sister Florence P# [phone] (patient and she are 6 months apart). Florence does not live with patient, Florence lives in [place] and works 6 days per week as a paid caregiver. Florence reports seeing patient every few months, says I can't be a part of that drama According to Florence, she has two 2 adult children, Anselmo and Ashlyn who are in and out of her ex spouse Don's home often, as is Ashlyn's spouse. Florence's grandchildren visit often as well. Florence reports patient's care needs have increased greatly over the last few weeks. Florence denies concern about patient's safety in her home and denies suspicion of abuse from the family members that patient lives with. Strongly encouraged Florence to consider a report to APS if a safety concern does arise. At baseline, patient is reportedly cognitively alert. Florence reports patient has been in and out of institutions her whole life however no hx of HH or SNF stay. Florence reports hx of psychosis Asked about POA documentation, Florence does not think patient has any DPOA or advanced directives, says that patient would not want any heroic measures to artificially sustain her life. Asked about other living relatives; Patient has no living parents, no living children, has siblings Florence and Sal. Sla hasn't been in contact for over 20 years and has hx of mental health illness. Florence plans to be at patient's bedside today with my aunts [phone]. Explained to Florence that she will be placed as patient's primary contact unless this GUN STRIPER hears differently or is guided differently by medical team and/or leadership at , Florence stated understanding and agreement. Florence reports she is not against patient's return to her ex's house, says she cannot care for her sister in her home. Florence hopeful patient will improve, also states if patient's prognosis is poor, patient would not want heroic measures. Updated Dr Winter. Monika Freedman, GUN STRIPER
[2023-03-17 08:00] VITALS: BP 166/90; PULSE 77
[2023-03-17] MEDS: ATORVASTATIN 20 MG TABLET PO (08:20)
[2023-03-17] MEDS: carBAMazepine XR 100 MG TAB 400 MG PO ×2 (08:20→14:32)
[2023-03-17] MEDS: TOPIRAMATE 25 MG TABLET PO (08:20)
[2023-03-17] MEDS: PARoxetine 20 MG TABLET 40 MG PO (08:20)
[2023-03-17] MEDS: SODIUM CHLORIDE 0.9% FLUSH 10 ML IV (08:25)
[2023-03-17 08:48] LABS: Alanine Aminotransferase 25 IU/L (<35); Albumin 3.5 g/dL (3.5-5.0); Albumin Globulin Ratio 1.1 (1.0-2.8); Alkaline Phosphatase 85 U/L (38-126); Aspartate Aminotransferase 39 IU/L (14-36); BUN Creatinine Ratio 33.3 (6-22); Bilirubin Total 0.5 mg/dL (0.2-1.3); Blood Urea Nitrogen 18 mg/dL (7-17); Calcium 9.3 mg/dL (8.4-10.2); Carbon Dioxide 26 mmol/L (22-32); Chloride 105 mmol/L (98-107); Estimated Glomerular Filt Rate > 60 mL/min (>60); Globulin 3.2 g/dL (1.7-4.1); Glucose 75 mg/dL (70-100); HEMOLYSIS < 15 (0-50); Sodium 138 mmol/L (137-145); Total Protein 6.7 g/dL (6.3-8.2)
[2023-03-17 09:30] LABS: Add Manual Diff / Slide Review NO; Basophils Absolute Auto 0 /uL (0-100); Basophils Percent Auto 0.6 % (0-2); Eosinophils Absolute Auto 100 /uL (0-450); Eosinophils Percent Auto 1.8 % (2-4); Hematocrit 32.8 % (36-46); Hemoglobin 11.2 g/dL (12.0-16.0); Lymphocytes Absolute Auto 600 /uL (1100-4500); Lymphocytes Percent Auto 8.5 % (25-40); Mean Corpuscular HGB Conc 34.1 % (30-36); Mean Corpuscular Hemoglobin 33.7 PG (26-34); Mean Corpuscular Volume 98.8 fL (80-100); Monocytes Absolute Auto 600 /uL (0-900); Monocytes Percent Auto 9.1 % (3-14); Neutrophils Absolute Auto 5400 /uL (1500-7000); Platelet Count 205 X10^3/uL (150-400); Red Blood Cell Count 3.32 X10^6/uL (4.0-5.2); Red Cell Distribution Width 12.1 % (11.6-14.8); White Blood Cell Count 6.8 X10^3/uL (4.5-11.0)
--- NOTE | 2023-03-17 09:39 | CM.SWNOTE ---
BAIL ATTACHER Note According to review of LULU [phone] on [place].gov: Informed Consent-Persons authorized to provide for patients who do not have hqqvozly-Orfslamv-Lqtspahbpgtsb homeless minors: (a) Persons authorized to provide informed consent to health care on behalf of an adult patient who does not have the capacity to make a health care decision shall be a member of one of the following classes of persons in the following order of priority: (i) The appointed guardian of the patient, if any; (ii) The individual, if any, to whom the patient has given a durable power of commercial real estate attorney that encompasses the authority to make health care decisions; (iii) The patient's spouse or state registered domestic partner; (iv) Children of the patient who are at least eighteen years of age; (v) Parents of the patient; (vi) Adult brothers and sisters of the patient; (vii) Adult grandchildren of the patient who are familiar with the patient; (viii) Adult nieces and nephews of the patient who are familiar with the patient; (ix) Adult aunts and uncles of the patient who are familiar with the patient; and (x)(A) An adult who: (I) Has exhibited special care and concern for the patient; (II) Is familiar with the patient's personal values; (III) Is reasonably available to make health care decisions; Will plan to disseminate to team. Discussed above with Dr Winter. SHARIF
--- NOTE | 2023-03-17 13:42 | CM.DPNOTE ---
JALEEL Cont Assigned APS case specialist at this time is Vinod Plummer APS Embossing Machine Operator Helper P# [phone], [email or web address]. Multidisciplinary efforts this morning between this QA MANAGER, Dr Fitzgerald, Dr Winter and Vinod Plummer w/SONIA; patient remains confused today, not baseline. Dr Fitzgerald suspects delirium not acute psychosis. Dr Fitzgerald recommending placement out of patient's home as patient has reported long standing hx of niece and her bf in and out of the home, intoxicated, homeless and squatting, kicked out by ex brother in law Don and inevitably welcomed back in the home. CM team following clinical course closely. Dr Winter suggests reassessment of patient's cognition tomorrow and if she can participate, an interview is needed with patient, alone at bedside to discuss allegations against family, safety of the home environment, stated needs etc. Plan: No defined discharge plan at this time, additional information needed. Can APS perform a home visit/walk through? Does the patient want to return home or would patient consider facility placement? Following closely. GLADYS Sherman
[2023-03-17] MEDS: BISACODYL 10 MG SUPP PR (14:32)
[2023-03-17 16:00] VITALS: BP 112/66; PULSE 90; RESP 18; TEMP 36.6; O2SAT 99
--- NOTE | 2023-03-17 18:48 | P.PN_ITS ---
Subjective Subjective Interval history: 57 years old female with history of longstanding depression, anxiety, sleep disturbance, chronic hearing loss more on the right side, blind requiring assistance, hyperlipidemia, GERD, seizure presented to the ER with altered mental status. Today more interactive and knows the president, the month and the year. Family present at bedside. APS assessing to determine if she is being neglected. Exam Vital Signs (past 8 hours): - 03/17/23 16:00 Temperature 97.8 F Pulse Rate 90 Respiratory Rate 18 Blood Pressure 112/66 Pulse Oximetry 99 Oxygen Flow Rate 0 Oxygen Delivery Method Room Air Oxygen Flow Rate 0 Narrative Exam Narrative: Gen: keeps hands close to chest, will not allow any exam Neuro: AOx2 which is improved Objective Labs 03/17/23 09:08 03/17/23 08:11 Labs: Laboratory Results - last 24 hr 03/17/23 03/17/23 08:11 09:08 WBC 6.8 RBC 3.32 L Hgb 11.2 L Hct 32.8 L MCV 98.8 MCH 33.7 MCHC 34.1 RDW 12.1 Plt Count 205 Neut % (Auto) 80.0 H Lymph % (Auto) 8.5 L [place] % (Auto) 9.1 Eos % (Auto) 1.8 L Baso % (Auto) 0.6 Neut # (Auto) 5400 Lymph # (Auto) 600 L [place] # (Auto) 600 Eos # (Auto) 100 Baso # (Auto) 0 Sodium 138 Potassium 4.0 Chloride 105 Carbon Dioxide 26 BUN 18 H Creatinine 0.54 Estimated GFR > 60 BUN/Creatinine Ratio 33.3 H Glucose 75 Calcium 9.3 Total Bilirubin 0.5 AST 39 H ALT 25 Alkaline Phosphatase 85 Total Protein 6.7 Albumin 3.5 Globulin 3.2 Albumin/Globulin Ratio 1.1 [facility] Social History marital status: unmarried,single household members: family and caregiver (Lives with ex xrrsgvk-bc-tjw who is been her electrician assistant for several years) lives independently: No caregiver/support person: Yes housing: house pets and animals: No education level: high school occupational status: disabled Smoking Status: Never smoker alcohol intake: never Assessment & Plan Assessment & Plan narrative: # acute toxic and/or metabolic encephalopathy vs post-ictal state - suspect most likely etiology given presentation with tachycardia and confusion is benzo withdrawal, there are documented concerns extensively in patient's chart regarding possible diversion of patient's benzodiazepines. - also possibly is post-ictal but no evidence of seizure and no prolactin checked on admission, however suspect patient was not receiving her anti-seizure meds appropriately - continue home benzos. I have asked for psychiatry assistance in evaluation. - ammonia checked and was <9. UA negative and no obvious signs or symptoms of infection. - UDS + for only marijuana - psych thinks benzo withdrawal most likely # vulnerable adult -APS investigating, but per initial report she may need placement due to unsafe living conditions -ENVIRONMENTAL PROTECTION INSPECTOR consulting -may need to involve ethics committee if needed # generalized anxiety disorder - continue home paroxetine 40 mg # insomnia - continue home medications # major depressive disorder, recurrent, moderate: - continue home paroxetine, follows with Dr. Fitzgerald. # seizure disorder - continue home topiramate and carbamazepine - ativan prn for seizure activity if any develops. # GERD - continue PPI # hyperlipidemia: - continue home atorvastatin 20 mg Code: Full code Dispo: Unclear. May need placement. Discussed with case management to add additional history and formulate the above assessment and plan. Also spoke with psych. Quality VTE Deep Vein Thrombosis/Pulmonary Embolism Present on Admission: No
[2023-03-17] MEDS: SODIUM CHLORIDE 0.9% 1,000 ML 100 ML IV (19:44)
--- NOTE | 2023-03-17 21:54 | PC.NURSE ---
Scheduling Clerk Patient refused all care, x3 times. 2 RETURN AGENT AIRPORT and RN was able change brief and visualize skin. Patient refused all medications, physical assessment and BG test. rodbuster informed.
[2023-03-18 06:00] VITALS: BP 147/81; PULSE 86; RESP 16; TEMP 36.5; O2SAT 98
[2023-03-18 08:06] VITALS: PULSE 72; RESP 14; TEMP 36.8; O2SAT 95
[2023-03-18 08:38] LABS: Add Manual Diff / Slide Review NO; Basophils Absolute Auto 0 /uL (0-100); Basophils Percent Auto 0.4 % (0-2); Eosinophils Absolute Auto 100 /uL (0-450); Eosinophils Percent Auto 1.7 % (2-4); Hematocrit 32.9 % (36-46); Hemoglobin 11.2 g/dL (12.0-16.0); Lymphocytes Absolute Auto 700 /uL (1100-4500); Lymphocytes Percent Auto 10.4 % (25-40); Mean Corpuscular Hemoglobin 33.3 PG (26-34); Monocytes Absolute Auto 800 /uL (0-900); Monocytes Percent Auto 11.4 % (3-14); Neutrophils Absolute Auto 5000 /uL (1500-7000); Neutrophils Percent Auto 76.1 % (50-75); Platelet Count 214 X10^3/uL (150-400); Red Blood Cell Count 3.36 X10^6/uL (4.0-5.2); Red Cell Distribution Width 12.4 % (11.6-14.8); White Blood Cell Count 6.6 X10^3/uL (4.5-11.0)
[2023-03-18] MEDS: carBAMazepine XR 100 MG TAB 400 MG PO ×3 (09:43→21:39)
[2023-03-18] MEDS: TOPIRAMATE 25 MG TABLET PO ×2 (09:43→21:39)
[2023-03-18] MEDS: SODIUM CHLORIDE 0.9% FLUSH 10 ML IV (09:43)
[2023-03-18] MEDS: ATORVASTATIN 20 MG TABLET PO (09:43)
[2023-03-18] MEDS: PARoxetine 20 MG TABLET 40 MG PO (09:43)
--- NOTE | 2023-03-18 15:22 | P.PN_ITS ---
Subjective Subjective Interval history: Patient not making sense today, says that she is in [place] with her father. When asked if she hears voices she says yes loud ring rings in my ears. Appears psychotic and delusional. Ashlyn at bedside and mentioned if she can transfer to inpatient psych at [facility]. I explained that we need to try treating her with different meds first to see if that helps. She also mentioned she was trying to make herself DPOA by having the patient sign the form, but I explained that would not be appropriate given her current mental status. Exam Vital Signs (past 8 hours): - 03/18/23 08:00 03/18/23 08:06 Temperature 98.3 F Pulse Rate 72 Respiratory Rate 14 Pulse Oximetry 95 Oxygen Delivery Method Room Air Oxygen Flow Rate 0 Oxygen Delivery Method Room Air Oxygen Flow Rate 0 Narrative Exam Narrative: Gen: keeps hands close to chest, will not allow any exam Psych: not oriented, tangential and pressured speech Objective Labs 03/18/23 08:25 03/17/23 08:11 Labs: Laboratory Results - last 24 hr 03/18/23 08:25 WBC 6.6 RBC 3.36 L Hgb 11.2 L Hct 32.9 L MCV 98.0 MCH 33.3 MCHC 34.0 RDW 12.4 Plt Count 214 Neut % (Auto) 76.1 H Lymph % (Auto) 10.4 L [place] % (Auto) 11.4 Eos % (Auto) 1.7 L Baso % (Auto) 0.4 Neut # (Auto) 5000 Lymph # (Auto) 700 L [place] # (Auto) 800 Eos # (Auto) 100 Baso # (Auto) 0 PFSH Social History marital status: unmarried,single household members: family and caregiver (Lives with ex [id number] who is been her dispatcher ship pilot for several years) lives independently: No caregiver/support person: Yes housing: house pets and animals: No education level: high school occupational status: disabled Smoking Status: Never smoker alcohol intake: never Assessment & Plan Assessment & Plan narrative: # acute toxic and/or metabolic encephalopathy vs post-ictal state - suspect most likely etiology given presentation with tachycardia and confusion is benzo withdrawal, there are documented concerns extensively in patient's chart regarding possible diversion of patient's benzodiazepines. - also possibly is post-ictal but no evidence of seizure and no prolactin checked on admission, however suspect patient was not receiving her anti-seizure meds appropriately - continue home benzos. I have asked for psychiatry assistance in evaluation. - ammonia checked and was <9. UA negative and no obvious signs or symptoms of infection. - UDS + for only marijuana - psych evaluated and initially thinks benzo withdrawal vs post-ictal seizure, less concerned about acute psychosis - patient's speech very tangential and pressured on 03/18, suggesting possible psychosis or delusions - Dr. Fitzgerald ok with starting zyprexa 5mg at bedtime # vulnerable adult -APS investigating, but per initial report she may need placement due to unsafe living conditions -ENGINEERING LIBRARIAN consulting -will place ethics committee consult for further help on who can be DPOA and how to proceed given complexity of case # generalized anxiety disorder - continue home paroxetine 40 mg # insomnia - continue home medications # major depressive disorder, recurrent, moderate: - continue home paroxetine, follows with Dr. Fitzgerald. # seizure disorder - continue home topiramate and carbamazepine - ativan prn for seizure activity if any develops. # GERD - continue PPI # hyperlipidemia - continue home atorvastatin 20 mg Code: Full code Dispo: Unclear. May need placement. Discussed with case management to add additional history and formulate the above assessment and plan. Also spoke with psych. Quality VTE Deep Vein Thrombosis/Pulmonary Embolism Present on Admission: No
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
[2023-03-18] MEDS: OLANZapine 2.5 MG TABLET 5 MG PO (21:39)
[2023-03-18] MEDS: SODIUM CHLORIDE 0.9% 1,000 ML 100 ML IV (22:12)
--- NOTE | 2023-03-19 07:11 | P.PN_ITS ---
Subjective Subjective Interval history: 57 yo female w/depression, anxiety, sleep disturbance, chronic hearing loss R>L, congenital blindness, HLD, GERD and seizure d/o admitted w/acute encephalopathy. She was evaluated by psychiatry and APS referral was recommended (report was made). She seemed to be improving on 03/17/23, but by 03/18/23 she was increasingly confused and appeared to have hallucinations/psychosis. Patient initially asked me why whenever we come into the room we will smell like alcohol. I responded that we are using hand beam dyer recessed vat. She then quickly transitioned into talking nonsensically. She told me she was in the [facility]. She did not reorient to the fact that she was in the hospital. He continued to appear to hallucinate. Exam Vital Signs (past 8 hours): Oxygen Delivery Method Room Air Oxygen Flow Rate 0 Narrative Exam Narrative: GEN: Alert and confused/disoriented, NAD HEENT:NC, Face symmetric CHEST: Respiratory excursions symmetric, CTAB CV: RRR, no M/R/G ABD: Soft, NT/ND, BT present in all 4 quadrants, no organomegaly or masses EXTR: warm, well perfused, no C/C/E SKIN: warm and dry, no rash NEURO: Alert, nonfocal Objective Labs 03/19/23 08:50 03/17/23 08:11 Labs: Laboratory Results - last 24 hr 03/18/23 08:25 WBC 6.6 RBC 3.36 L Hgb 11.2 L Hct 32.9 L MCV 98.0 MCH 33.3 MCHC 34.0 RDW 12.4 Plt Count 214 Neut % (Auto) 76.1 H Lymph % (Auto) 10.4 L [place] % (Auto) 11.4 Eos % (Auto) 1.7 L Baso % (Auto) 0.4 Neut # (Auto) 5000 Lymph # (Auto) 700 L [place] # (Auto) 800 Eos # (Auto) 100 Baso # (Auto) 0 PFSH Social History marital status: unmarried,single household members: family and caregiver (Lives with ex niugeut-eq-dhs who is been her lacquer dipping machine operator for several years) lives independently: No caregiver/support person: Yes housing: house pets and animals: No education level: high school occupational status: disabled Smoking Status: Never smoker alcohol intake: never Assessment & Plan Assessment & Plan narrative: 1. Acute encephalopathy, unclear if metabolic/toxic Continue to monitor. Etiology is not entirely clear. She continues on olanzapine at bedtime as well as her usual medications. 2. Hallucinations/psychosis in the setting of chronic depression/anxiety As above, continue olanzapine. Continue to monitor for improvement 3. Congenital blindness Stable. Needs caregiving. 4. Bilateral hearing loss Stable, chronic. Patient is able to hear reasonably well during conversation. Code status Full Prophy She is not presently on DVT prophylaxis. She is lying in bed. Will add Lovenox. Dispo Pending Surrogate decision maker: She very likely will need a guardian as it is reported that her niece and lchuvh-[id number]-fdv have issues w/substance abuse. Niece was attempting to get pt to sign POA paperwork on 03/18/23 when pt was acutely hallucinating/psychotic. I have asked that staff supervised all visits to ensure attempts were not made for legal paperwork to be signed when the patient remains altered. Quality VTE Deep Vein Thrombosis/Pulmonary Embolism Present on Admission: No
[2023-03-19] MEDS: ATORVASTATIN 20 MG TABLET PO (08:23)
[2023-03-19] MEDS: TOPIRAMATE 25 MG TABLET PO ×2 (08:23→21:42)
[2023-03-19] MEDS: carBAMazepine XR 100 MG TAB 400 MG PO ×3 (08:23→21:42)
[2023-03-19] MEDS: PARoxetine 20 MG TABLET 40 MG PO (08:23)
[2023-03-19] MEDS: SODIUM CHLORIDE 0.9% FLUSH 10 ML IV (08:29)
[2023-03-19 08:57] LABS: Add Manual Diff / Slide Review NO; Basophils Absolute Auto 0 /uL (0-100); Basophils Percent Auto 0.6 % (0-2); Eosinophils Absolute Auto 100 /uL (0-450); Eosinophils Percent Auto 1.9 % (2-4); Hematocrit 31.7 % (36-46); Hemoglobin 10.8 g/dL (12.0-16.0); Lymphocytes Absolute Auto 800 /uL (1100-4500); Lymphocytes Percent Auto 12.1 % (25-40); Mean Corpuscular Hemoglobin 33.5 PG (26-34); Mean Corpuscular Volume 98.4 fL (80-100); Monocytes Absolute Auto 800 /uL (0-900); Monocytes Percent Auto 12.2 % (3-14); Neutrophils Absolute Auto 4600 /uL (1500-7000); Neutrophils Percent Auto 73.2 % (50-75); Platelet Count 188 X10^3/uL (150-400); Red Blood Cell Count 3.22 X10^6/uL (4.0-5.2); Red Cell Distribution Width 12.4 % (11.6-14.8); White Blood Cell Count 6.3 X10^3/uL (4.5-11.0)
[2023-03-19 10:00] VITALS: BP 156/87; PULSE 90; RESP 16; TEMP 36.6; O2SAT 98
[2023-03-19] MEDS: SODIUM CHLORIDE 0.9% 1,000 ML 100 ML IV ×2 (11:50→21:43)
--- NOTE | 2023-03-19 12:48 | PC.NURSE ---
Addendum entered by Chester Card R.N. 03/19/23 13:20: niece has stepped out of patients room to take a phone call, patient is resting peacefully listening to Edith music. Addendum entered by Chester Card R.N. 03/19/23 12:59: patient getting agitated saying, I have flea bits all over my body because of your hunter cats. Niece states, you don't know what your talking about, you are making sense and then you are not. Original Note: Niece at bedside, supervised visits being done. Patient and Niece are talking. Niece states staff doesn't know what they are doing here because you are declining. Niece was seen taking photos of patient and was heard telling the patient lay here normal while taking a photo. Patient is alert but confused. Having conversation with niece but patient isnt not making much sense and niece on several occasions has gotten frustrated with patient stating, your not making sense, what are you talking about, you are jumping all over the place. Patient is notably agitated and said, will you just listen to me.
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
--- NOTE | 2023-03-19 13:45 | PC.NURSE ---
Addendum entered by Chester Card R.N. 03/19/23 14:19: Oly qustions this nurse about a bruise on her RT wrist. States, She didn't have those when she came in, those are not from home. I said they likely are from lab draws or a attempt to placing a IV and this nurse pointed out the spot where it appears a needle stick was. Oly states, well if they are going to call Adult protective services on me, I am going to question everything. Addendum entered by Chester Card R.N. 03/19/23 14:14: patient is sitting up in bed, eyes closed, having a conversation with herself. Patient is confused talking word salad. Nimaykel is present at bedside looking at tablet. Addendum entered by Chester Card R.N. 03/19/23 13:56: Family member on the phone asks oly at the bedside to turn phone conversation off speaker phone. Discussion about transferring patient from to [facility]. Talks between family members on the phone about leaving AMA and nimaykel states, I can take her straight to [facility]. Nice is telling family member, the staff has not gotten her out of bed, she has laid here for 4 days. Physical therapy has not even seen her (Anna) while she has been here. Addendum entered by Chester Card R.N. 03/19/23 13:51: patient is talking on the phone telling other family member, I need two batteries for my ears so I can play the [employer]. When asked where she is patient states, I am in the meeting on the [facility] in [place]. Family member attempts to re-orientate patient and patient becomes agitated with family member on the phone. Family member is making a attempt to end conversation and patient continues to ramble on, conversation is word salad. Original Note: Oly back at bedside talking on the phone with her mother. Asking the patient if she wants to be transfer to [facility]. Patient's response, I cant get all this junk out of my teeth. Patient's niece states, so you do want to be transferred to [facility]?. Oly is heard telling her mother on the phone that patient is, getting bedsores while her at [facility]. Niece states to mother on phone, I can get her out of here without her fighting me. Patient is notably confused talking on the phone with nieces mother. Talking about her teeth, getting her helmets ready for her and put them in her bag. Patient states, people are here smoking around me.
--- NOTE | 2023-03-19 15:23 | PC.NURSE ---
oly is requesting to speak with provider. Dr. Aguirre was contacted via web-ex. Phone number for Oly Goldberg was messages to Timothy per providers request and provider will attempt to follow up with family member later today.
[2023-03-19] MEDS: OLANZapine 2.5 MG TABLET 5 MG PO (21:42)
[2023-03-20 02:00] VITALS: BP 150/82; PULSE 74; RESP 16; TEMP 36.7; O2SAT 96
[2023-03-20 07:27] VITALS: BP 129/73; PULSE 84; RESP 16; TEMP 37; O2SAT 99
--- NOTE | 2023-03-20 07:27 | PM.PN.1 ---
Subjective Subjective Interval history: 57 yo female w/depression, anxiety, sleep disturbance, chronic hearing loss R>L, congenital blindness, HLD, GERD and seizure d/o admitted w/acute encephalopathy. She was evaluated by psychiatry and APS referral was recommended (report was made). She seemed to be improving on 03/17/23, but by 03/18/23 she was increasingly confused and appeared to have hallucinations/psychosis. Patient speaking nonsensically to herself. Urine appeared very cloudy and UA shows UTI. Rocephin started. Exam Vital Signs (past 8 hours): - 03/20/23 02:00 Temperature 98.0 F Pulse Rate 74 Respiratory Rate 16 Blood Pressure 150/82 H Pulse Oximetry 96 Oxygen Delivery Method Room Air Oxygen Flow Rate 0 Narrative Exam Narrative: GEN: Alert and confused/disoriented, NAD, speaking nonsensically to herself HEENT:NC, Face symmetric CHEST: Respiratory excursions symmetric, CTAB CV: RRR, no M/R/G ABD: Soft, NT/ND, BT present in all 4 quadrants, no organomegaly or masses EXTR: warm, well perfused, no C/C/E SKIN: warm and dry, no rash NEURO: Alert, nonfocal Objective Labs 03/20/23 10:20 03/20/23 10:20 Labs: Laboratory Results - last 24 hr 03/19/23 08:50 WBC 6.3 RBC 3.22 L Hgb 10.8 L Hct 31.7 L MCV 98.4 MCH 33.5 MCHC 34.0 RDW 12.4 Plt Count 188 Neut % (Auto) 73.2 Lymph % (Auto) 12.1 L [place] % (Auto) 12.2 Eos % (Auto) 1.9 L Baso % (Auto) 0.6 Neut # (Auto) 4600 Lymph # (Auto) 800 L [place] # (Auto) 800 Eos # (Auto) 100 Baso # (Auto) 0 PFSH Social History marital status: unmarried,single household members: family and caregiver (Lives with ex oayzzjk-te-zrl who is been her analytical technician for several years) lives independently: No caregiver/support person: Yes housing: house pets and animals: No education level: high school occupational status: disabled Smoking Status: Never smoker alcohol intake: never Assessment & Plan Assessment & Plan narrative: 1. Acute encephalopathy, unclear if metabolic/toxic Continue to monitor. Etiology is not entirely clear. Most likely represents acute psychosis due to rapid, pressured and paranoid speech with nonsensical verbiage. 2. Hallucinations/psychosis in the setting of chronic depression/anxiety As above, continue olanzapine. Continue to monitor for improvement. Increased zyprexa to 10mg at bedtime per psych. 3. Congenital blindness Stable. Needs caregiving. 4. Bilateral hearing loss Stable, chronic. Patient is able to hear reasonably well during conversation. 5. CAUTI, not present on admission Patient refused to allow cleaning of muhammad. UA with pyuria. Start rocephin 1g x3 days and f/up urine culture. Code status Full Prophy Lovenox Dispo Pending placement Surrogate decision maker: She very likely will need a guardian as it is reported that her niece and juuxmj-gv-vjt have issues w/substance abuse. Niece was attempting to get pt to sign POA paperwork on 03/18/23 when pt was acutely hallucinating/psychotic. I have asked that staff supervised all visits to ensure attempts were not made for legal paperwork to be signed when the patient remains altered. Quality VTE Deep Vein Thrombosis/Pulmonary Embolism Present on Admission: No
[2023-03-20 08:00] VITALS: BP 174/99; PULSE 79; RESP 16; TEMP 36.6; O2SAT 97
[2023-03-20] MEDS: PARoxetine 20 MG TABLET 40 MG PO (08:32)
[2023-03-20] MEDS: ATORVASTATIN 20 MG TABLET PO (08:32)
[2023-03-20] MEDS: TOPIRAMATE 25 MG TABLET PO ×2 (08:33→20:58)
[2023-03-20] MEDS: SODIUM CHLORIDE 0.9% 1,000 ML 100 ML IV (08:33)
[2023-03-20] MEDS: carBAMazepine XR 100 MG TAB 400 MG PO ×3 (08:33→20:59)
[2023-03-20] MEDS: SODIUM CHLORIDE 0.9% FLUSH 10 ML IV ×2 (08:34→20:59)
[2023-03-20 10:27] LABS: Add Manual Diff / Slide Review NO; Basophils Absolute Auto 0 /uL (0-100); Basophils Percent Auto 0.5 % (0-2); Eosinophils Absolute Auto 200 /uL (0-450); Eosinophils Percent Auto 2.3 % (2-4); Hematocrit 31.8 % (36-46); Hemoglobin 10.7 g/dL (12.0-16.0); Lymphocytes Absolute Auto 800 /uL (1100-4500); Lymphocytes Percent Auto 12.8 % (25-40); Mean Corpuscular HGB Conc 33.6 % (30-36); Mean Corpuscular Hemoglobin 33.3 PG (26-34); Mean Corpuscular Volume 99.2 fL (80-100); Monocytes Absolute Auto 900 /uL (0-900); Monocytes Percent Auto 13.9 % (3-14); Neutrophils Absolute Auto 4600 /uL (1500-7000); Neutrophils Percent Auto 70.5 % (50-75); Platelet Count 210 X10^3/uL (150-400); Red Cell Distribution Width 12.4 % (11.6-14.8); White Blood Cell Count 6.6 X10^3/uL (4.5-11.0)
[2023-03-20 10:46] LABS: Alanine Aminotransferase 19 IU/L (<35); Albumin 3.2 g/dL (3.5-5.0); Alkaline Phosphatase 73 U/L (38-126); Aspartate Aminotransferase 28 IU/L (14-36); BUN Creatinine Ratio 19.6 (6-22); Bilirubin Total 0.3 mg/dL (0.2-1.3); Blood Urea Nitrogen 11 mg/dL (7-17); Calcium 8.9 mg/dL (8.4-10.2); Carbon Dioxide 26 mmol/L (22-32); Chloride 107 mmol/L (98-107); Estimated Glomerular Filt Rate > 60 mL/min (>60); Globulin 3.1 g/dL (1.7-4.1); Glucose 107 mg/dL (70-100); HEMOLYSIS < 15 (0-50); Magnesium 1.8 mg/dL (1.6-2.3); Sodium 139 mmol/L (137-145); Total Protein 6.3 g/dL (6.3-8.2)
--- NOTE | 2023-03-20 14:07 | PC.NURSE ---
Assumed 1:1 supervised visits with patient and Neice. Patient is resting in bed, eyes close. Pt is rambling to herself, niece is at bedside looking at tablet.
--- NOTE | 2023-03-20 15:58 | PC.NURSE ---
Patient in bed rambling to self. Refused to get up with this nurse and primary nurse, refused to be cleaned up, brush teeth, and became verbally aggressive when this nurse attempted to adjust her SCD's. Patient oly Goldberg is at the bedside speaking to Ezra on the phone. Ezra states, he is the DPOA and patient signed for him to be so years ago. Nimaykel, Ashlyn, is notably frustrated over this and states to this nurse, she had no idea he was her DPOA. This nurse asked for clarification regarding the conversation that was had between the two of us yesterday regarding DPOA status. Oly stated to this nurse, her mother has DPOA and is planning on signing it over to Ashlyn. Ashlyn goes on to explain the second time to this nurse the conversation that was had between herself and APS credit representative during the sit down meeting in the Acute Care waiting room. Ashlyn states, the APS gentleman advised her that if she was able to have two witnesses and have even just a few minutes of clarity in her mentation that she can have the DPOA paperwork signed for Oly Goldberg to obtain DPOA status. This nurse explained to Ashlyn that at this time patient has not shown any moments of clarity in her cognition and she continues to be confused. Family member Ezra is asking for a update and plan for patient. Informed Ezra there is no notation in patients chart other than him listed as Emergency contact that informs staff that we can share information regarding patient to him. This nurse did attemt to get permission form patient and her response was, yes you can share info with Don as long as he is nice and you will have to talk to his neighbor as well. This nurse informed Ezra at this time, we are unable to share any information with him and advised him to provide us with the proper documentation regarding DPOA information.
[2023-03-20 16:07] LABS: Appearance Urine UA CLOUDY; Bilirubin Urine UA NEGATIVE (NEGATIVE); Color Urine UA YELLOW; Glucose Urine UA NEGATIVE (Negative); Ketones Urine UA NEGATIVE (NEGATIVE); Leukocyte Esterase Urine UA 2+ (NEGATIVE); Nitrite Urine UA NEGATIVE (Negative); Occult Blood Urine UA 3+ (Negative); Protein Urine UA NEGATIVE (Negative); Specific Gravity Urine UA 1.015 (1.000-1.035); Urobilinogen Urine UA 0.2 E.U./dL (0.2)
[2023-03-20 16:18] LABS: Bacteria Urine Many (>30); Calcium Oxalate Crystals Urine Occasional; Culture Indicated Urine Specimen Cultured; RBC Urine 10-30/HPF (0-5/HPF); Squamous Epithelial Cell Urine 1-5 /HPF (0-5/HPF); WBC Urine 30-100/HPF (0-5/HPF)
--- NOTE | 2023-03-20 16:36 | CM.DPNOTE ---
Addendum entered by GLADYS Powell 03/20/23 16:52: CARPENTER INSPECTOR emailed Vinod APS confidential investigator ([email or web address]) with updated PN/RN notes and to inquire about conclusions from their investigation to assist this CM team in the development a more concrete and appropriate DCP SL Original Note: DCP note CARPENTER INSPECTOR reviewed EMR. Per nursing staff in rounds, Hammer here in morning for further psychiatric evaluation. CARPENTER INSPECTOR unable to get ahold of APS worker Vinod Mills for further guidance for the dcp pending their investigation. Per provider note, continues to experience hallucination. most likely represents acute psychosis due to rapid, pressured and paranoid speech with nonsensical verbiage...pending placement. No psychiatric consult note available as of 1629 for further psychiatric dcp guidance. See RN note for further record of family interaction with patient. Pt on 1:1 supervision at this time due to previous attempts for family to have pt sign legal paperwork while patient remains altered. Plan: no clear DCP at this time. Pending psychiatric recommendation for placement and APS investigation findings. CM team will continue to follow closely. GLADYS Powell
[2023-03-20] MEDS: cefTRIAXone 1,000 MG in SODIUM CHLORIDE 0.9% 100 ML 200 MG IV (16:46)
[2023-03-20 18:11] VITALS: BP 148/76; PULSE 76; RESP 18; TEMP 36.2
--- NOTE | 2023-03-20 18:12 | PC.NURSE ---
Patient refusing bath, muhammad care, brief changes. Yelling and kicking at staff.
[2023-03-20 20:00] VITALS: BP 130/66; PULSE 80; RESP 16; TEMP 36.6; O2SAT 98
[2023-03-20] MEDS: TRAZODONE 50 MG TABLET 100 MG PO (20:57)
[2023-03-20] MEDS: OLANZapine 2.5 MG TABLET 10 MG PO (20:58)
--- NOTE | 2023-03-21 02:24 | PC.NURSE ---
Addendum entered by Manuel Flanagan R.N. 03/21/23 05:57: Patient still refusing all care from staff. IV 5mg Valium One now dose ordered and administered, brief changed, new blankets placed. Water offered to patient, patient refused. Call light in reach, bed alarm on, door open for visualization. Christophe Supervisor Wood Room updated this RN that patient refused blood draw, this RN said to try during day. Original Note: When trying to assess patients abdomen and muhammad, when pulling blankets down, patient pulled blankets back up immediately stating no you can't. Patient stating I don't trust you and you need to do more research I am getting my teeth fixed tomorrow I cannot eat anything when trying to administer bedtime medications. Patient took medications with pudding after a few minutes of calming down. Patient refusing care from this RN and Zackary ALVAREZ at beginning of shift. Patient turning self in bed at times, and fell asleep early on in shift. Equal rise and fall of chest, call light in reach, door open for visualization.
[2023-03-21 04:00] VITALS: BP 124/88; PULSE 90; RESP 18; TEMP 36.8; O2SAT 100
[2023-03-21] MEDS: diazePAM 10 MG/2 ML SYRINGE 5 MG IV (05:07)
[2023-03-21] MEDS: PARoxetine 20 MG TABLET 40 MG PO (09:25)
[2023-03-21] MEDS: TOPIRAMATE 25 MG TABLET PO ×2 (09:25→20:39)
[2023-03-21] MEDS: carBAMazepine XR 100 MG TAB 400 MG PO ×3 (09:25→20:38)
[2023-03-21] MEDS: ENOXAPARIN 40 MG/0.4 ML SYRINGE SUBCUT (09:25)
[2023-03-21] MEDS: ATORVASTATIN 20 MG TABLET PO (09:25)
[2023-03-21] MEDS: SODIUM CHLORIDE 0.9% FLUSH 10 ML IV ×2 (09:30→22:14)
--- NOTE | 2023-03-21 12:17 | P.PN_ITS ---
Subjective Subjective Date Patient Seen: 03/21/23 Time Patient Seen: 09:00 Interval history: Patient was seen today and was able to state her name, location and some of her family relationships. However, as in previous days, she continues to lapse into tangential topics that make no sense. Toay, she talked about her (she is not ), the alliance party in the room, something about being upstairs or going downstairs, and stating that she was awaiting surgery for her broken legs (they are fine). Exam Vital Signs (past 8 hours): Oxygen Delivery Method Room Air Oxygen Flow Rate 0 Narrative Exam Narrative: MENTAL STATUS EXAM * Appearance: The patient is a very slender, thin, cachectic female who appears stated age. * G[facility]: [facility] and [facility] bed on the xiong. * Eye Contact: The patient is blind. * Behavior: Generally calm and cooperative but not coherent. * Motor Movement: No abnormal motor movements noted. * Gait: Not tested. Bedbound. * Speech: No impedent other than some poor dentition. More understandable today. * Mood: Fine. * Affect: more alert, mildly dysphoric, but friendly. * Thought Process: Tangential and nonsensical. * Thought Content: No SI HI, intent, or plan. Does not appear to be hallucinating, but may be delusional. * Attention: Attentive to the interview * Orientation: Oriented to person place, and some circumstance but not to time * Memory: Not tested * Insight: Poor * Judgment: Poor * Impulse Control: Poor on examination at this time. Objective Labs 03/20/23 10:20 03/20/23 10:20 Labs: Laboratory Results - last 24 hr 03/20/23 15:40 Urine Color Yellow Urine Appearance Cloudy Urine pH 7.0 Ur Specific [place] 1.015 Urine Protein Negative Urine Glucose (UA) Negative Urine Ketones Negative Urine Occult Blood 3+ H Urine Nitrate Negative Urine Bilirubin Negative Urine Urobilinogen 0.2 Ur Leukocyte Esterase 2+ H Urine RBC 10-30/hpf H Urine WBC 30-100/hpf H Ur Squamous Epith Cells 1-5 /hpf Calcium Oxalate Crystal Occasional H Urine Bacteria Many (>30) H Ur Culture Indicated? Specimen cultured [facility] Social History marital status: unmarried,single household members: family and caregiver (Lives with ex mrzuadv-sg-cjh who is been her animal caretaker for several years) lives independently: No caregiver/support person: Yes housing: house pets and animals: No education level: high school occupational status: disabled Smoking Status: Never smoker alcohol intake: never Assessment & Plan Assessment and plan (1) Acute metabolic encephalopathy: Status: Acute (2) Generalized anxiety disorder: Status: Acute (3) Major depressive disorder, recurrent, moderate: Status: Chronic (4) Seizure disorder: Status: Acute (5) Generalized anxiety disorder: Status: Acute Assessment & Plan narrative: Patient is a 57-year-old female with a long history of depression, anxiety, and sleep disturbance in the context of fairly significant seizure disorder and disabilities that include blindness from and chronic hearing loss in her right ear. Previously stable, but now with significant mental status changes that are only marginally improving. RECOMMENDATIONS: 1. Continue current psych and seizure meds. 2. Increase Olanzapine to 15 mg nightly. 3. Await Adult Protective Services feedback on home environment for vulnerable adult. 4. Continue seizure precautions as you are doing. 5. We will continue to follow with you and provide serial mental status observations as patient's mental status clears. Time Spent With Patient Time with patient: less than 30 minutes Quality VTE Deep Vein Thrombosis/Pulmonary Embolism Present on Admission: No
--- NOTE | 2023-03-21 12:59 | PC.NURSE ---
Greeted Pt's oly at [facility] after she had gone to room and noted sign on door saying to check with Pt's Nurse. Oly said you won't be keeping me from seeing my aunt. Discussed with Rudi Hudson's RN. Oly allowed to visit with supervision. This nurse is outside the room with direct view of interactions.
[2023-03-21 13:48] VITALS: BP 115/69; PULSE 96; RESP 16; TEMP 36.9
--- NOTE | 2023-03-21 15:04 | P.PN_ITS ---
Subjective Subjective Interval history: Patient's mentation maybe a little better today with the increased zyprexa. PT ordered. Exam Vital Signs (past 8 hours): - 03/21/23 13:48 Temperature 98.5 F Pulse Rate 96 H Respiratory Rate 16 Blood Pressure 115/69 Oxygen Delivery Method Room Air Oxygen Flow Rate 0 Narrative Exam Narrative: GEN: Alert and confused/disoriented, NAD HEENT:NC, Face symmetric CHEST: Respiratory excursions symmetric, CTAB CV: RRR, no M/R/G ABD: Soft, NT/ND, BT present in all 4 quadrants, no organomegaly or masses EXTR: warm, well perfused, no C/C/E SKIN: warm and dry, no rash NEURO: Alert, nonfocal Objective Labs 03/20/23 10:20 03/20/23 10:20 Labs: Laboratory Results - last 24 hr 03/20/23 15:40 Urine Color Yellow Urine Appearance Cloudy Urine pH 7.0 Ur Specific [place] 1.015 Urine Protein Negative Urine Glucose (UA) Negative Urine Ketones Negative Urine Occult Blood 3+ H Urine Nitrate Negative Urine Bilirubin Negative Urine Urobilinogen 0.2 Ur Leukocyte Esterase 2+ H Urine RBC 10-30/hpf H Urine WBC 30-100/hpf H Ur Squamous Epith Cells 1-5 /hpf Calcium Oxalate Crystal Occasional H Urine Bacteria Many (>30) H Ur Culture Indicated? Specimen cultured [facility] Social History marital status: unmarried,single household members: family and caregiver (Lives with ex [id number] who is been her rn advice for several years) lives independently: No caregiver/support person: Yes housing: house pets and animals: No education level: high school occupational status: disabled Smoking Status: Never smoker alcohol intake: never Assessment & Plan Assessment & Plan narrative: 1. Acute encephalopathy, unclear if metabolic/toxic Continue to monitor. Etiology is not entirely clear. Most likely represents acute psychosis due to rapid, pressured and paranoid speech with nonsensical verbiage. 2. Hallucinations/psychosis in the setting of chronic depression/anxiety As above, continue olanzapine. Continue to monitor for improvement. Increased zyprexa to 10mg at bedtime per psych. 3. Congenital blindness Stable. Needs caregiving. 4. Bilateral hearing loss Stable, chronic. Patient is able to hear reasonably well during conversation. 5. CAUTI, not present on admission Patient refused to allow cleaning of muhammad. UA with pyuria. Start rocephin 1g x3 days and f/up urine culture. Code status Full Prophy Lovenox Dispo Pending placement. PT eval ordered Surrogate decision maker: She very likely will need a guardian as it is reported that her niece and [id number] have issues w/substance abuse. Niece was attempting to get pt to sign POA paperwork on 03/18/23 when pt was acutely hallucinating/psychotic. I have asked that staff supervised all visits to ensure attempts were not made for legal paperwork to be signed when the patient remains altered. Quality VTE Deep Vein Thrombosis/Pulmonary Embolism Present on Admission: No
--- NOTE | 2023-03-21 16:19 | CM.DPC ---
DCP Cont: Per MD, pt seems to wax and wane in her cognition and alertness and difficult to determine pt's medical needs. Pt has been refusing some care, especially with muhammad and now with UTI and started on IV-Abx today. Psychiatrist Consult again today and pt's presentation is still somewhat confusing but plan of increasing her Zyprexa some today as pt seems to be making some progress with her cognition but still sometimes talking nonsensical. PT to be ordered to see if pt can safely follow any commands at this time. SW met with pt's niece Ashlyn and pt's sister (niece's mom) and updated them on pt's progress and they confirm they feel pt is the most alert and oriented today that she has been. Niece inquired about APS referral and the supervised visits here at the hospital and SW explained that it was due to niece trying to get pt to sign POA pwk while not alert and oriented. Niece acknowledged understanding and states that her dad discovered he is POA at pt's PCP office and with insurance and SW explained that copy of POA pwk would need to be provided otherwise he might just have verbal permission to receive pt's medical information from those places. SW discussed the barrier to Inpt MH tx as pt is not currently independent with ADLs. SW also inquired if pt has been approved for [facility] and nimaykel states that pt was approved but pt only wanted family to care for her. SW explained [facility] and the process if other family members wanted to assist. Plan: SW to follow closely as pt currently seems to be making slow progress but not able to make her own decisions at this time and hopeful with medications and medical care she will continue to clear towards more baseline independence and better discharge planning. GLADYS Bonilla
[2023-03-21] MEDS: cefTRIAXone 1,000 MG in SODIUM CHLORIDE 0.9% 100 ML 200 MG IV (16:20)
[2023-03-21] MEDS: TRAZODONE 50 MG TABLET 100 MG PO (20:38)
[2023-03-21] MEDS: CEFDINIR 300 MG CAPSULE PO (20:39)
[2023-03-21] MEDS: OLANZapine 2.5 MG TABLET 10 MG PO (20:39)
[2023-03-21 21:00] VITALS: BP 156/55; PULSE 108; RESP 19; TEMP 36.8; O2SAT 100
[2023-03-22] MEDS: LORazepam 0.5 MG TABLET PO (04:40)
--- NOTE | 2023-03-22 05:04 | PC.NURSE ---
Addendum entered by Deneen Shrestha R.N. 03/22/23 06:29: PO lorazepam effective. Pericare done, patient had medium bowel movement. Repositioned, patient sleeping at this time. Original Note: Patient is refusing gabriel care, stating No, no, don't. My takes care of me, pushing us away and holding her gown down. Noted she has had a bowel movement. PRN PO Lorazepam given with applesauce. Will reattempt to do pericare.
[2023-03-22 06:52] VITALS: BP 104/55; PULSE 77; RESP 19; TEMP 37; O2SAT 95
[2023-03-22 08:44] LABS: Add Manual Diff / Slide Review NO; Basophils Absolute Auto 0 /uL (0-100); Basophils Percent Auto 0.5 % (0-2); Eosinophils Absolute Auto 100 /uL (0-450); Eosinophils Percent Auto 2.6 % (2-4); Hematocrit 30.4 % (36-46); Hemoglobin 10.3 g/dL (12.0-16.0); Lymphocytes Absolute Auto 800 /uL (1100-4500); Lymphocytes Percent Auto 16.8 % (25-40); Mean Corpuscular HGB Conc 33.9 % (30-36); Mean Corpuscular Hemoglobin 33.9 PG (26-34); Mean Corpuscular Volume 99.9 fL (80-100); Monocytes Absolute Auto 800 /uL (0-900); Monocytes Percent Auto 15.1 % (3-14); Neutrophils Absolute Auto 3300 /uL (1500-7000); Platelet Count 204 X10^3/uL (150-400); Red Blood Cell Count 3.05 X10^6/uL (4.0-5.2); Red Cell Distribution Width 12.4 % (11.6-14.8)
[2023-03-22] MEDS: TOPIRAMATE 25 MG TABLET PO ×2 (09:48→20:46)
[2023-03-22] MEDS: PARoxetine 20 MG TABLET 40 MG PO (09:48)
[2023-03-22] MEDS: CEFDINIR 300 MG CAPSULE PO ×2 (09:48→20:46)
[2023-03-22] MEDS: ATORVASTATIN 20 MG TABLET PO (09:50)
[2023-03-22] MEDS: carBAMazepine XR 100 MG TAB 400 MG PO ×3 (09:50→21:08)
[2023-03-22] MEDS: ENOXAPARIN 40 MG/0.4 ML SYRINGE SUBCUT (09:50)
--- NOTE | 2023-03-22 12:26 | PT.IIE ---
Current Diagnoses Hyperlipidemia, unspecified (03/14/23) Major depressive disorder, recurrent, moderate (03/14/23) Generalized anxiety disorder (03/14/23) Epilepsy, unspecified, not intractable, without status epilepticus (03/14/23) Other insomnia (03/14/23) Metabolic encephalopathy (03/14/23) Gastro-esophageal reflux disease without esophagitis (03/14/23) Altered mental status, unspecified (03/14/23) Hyperglycemia, unspecified (03/14/23) Physical Therapy Inpatient Evaluation/Re-Eval M1 PT/OT-IP Prior Functional Status Start: 03/22/23 08:33 Freq: NEEDED Status: Active Protocol: Document 03/22/23 12:00 MB (Rec: 03/22/23 12:25 MB [id number]) Medical Review Prior Functional Status Medical History Reviewed Yes Communication Unsure pt's baseline diet and communication Mobility and Gait Pt unable to answer prior disposition questions well. When asked if she walks at baseline, she states, Of course! When there's somebody! I am getting dog training. Activities of Daily Living and IADL's Pt does not answer questions clearly, keeps eyes closed and does not always engage with PT Social History Household Members family,caregiver Living Arrangements House Number of Stairs To Enter/Railing? Unsure if pt has steps at home or not, will set a goal just in case and if no steps, do not need to progress towards that Additional Social History Comment PT is not able to get any of this info from the pt and per chart notes, it appears that family may no be reliable and so PT does not call family M2 PT-IP Current Condition Start: 03/22/23 08:33 Freq: NEEDED Status: Active Protocol: Document 03/22/23 12:00 MB (Rec: 03/22/23 12:25 MB [id number]) Physical Therapy Current Condition Current Condition Evaluation Date 03/22/23 Treatment Diagnosis Confusion, epilepsy M3 PT-IP Subjective Start: 03/22/23 08:33 Freq: NEEDED Status: Active Protocol: Document 03/22/23 12:00 MB (Rec: 03/22/23 12:25 MB [id number]) Subjective Physical Therapy Visit Type Type Initial Evaluation Visit Start Time 12:00 Visit Stop Time 12:10 Total Visit Minutes 10 Number of BODY REPAIRER Visits 0 Physical Therapy Visit Comments Patient Comments I have to keep them up and this is the way I am. I am moving here. When PT asks pt if she will participate with PT and attempt sitting EOB/ moving Patient Goals Unsure goals or plan M4 PT-IP Mobility and Gait Start: 03/22/23 08:33 Freq: NEEDED Status: Active Protocol: Document 03/22/23 12:00 MB (Rec: 03/22/23 12:25 MB [id number]) PT-Bed Mobility Assessment Scooting Scooting to Edge of Bed Standby Assistance Scooting Up and Down in Bed Standby Assistance PT-Transfer Assessment Comments Mobility Comments HOB increased, four rails up and lots of pillows around pt unable arrival. She keeps her eyes closed despite PT asking if she will open them. Pt is agitated when PT moves down left rail and states she has to keep things as they are and she pulls the pillows around her. She moves her arms and legs freely and scoots well in the bed with HOB increased. PT-Balance Assessment Sitting Balance and Reactions Static Sitting Balance Ability Fair Dynamic Sitting Balance Ability Fair Comments Other Balance Tests/Deviations/Treatment Pt only sits up momentarily : into better upright position where she is supporting herself rather than resting against HOB that his elevated. M5 PT-IP Objective Assessments Start: 03/22/23 08:33 Freq: NEEDED Status: Active Protocol: Document 03/22/23 12:00 MB (Rec: 03/22/23 12:25 MB [id number]) Orientation Orientation/Cognition Level of Alertness Confusional State Safety Awareness Decreased Safety Awareness Memory Description Short Term Impaired,Residential Impaired Comments Pt does not answer any orientation questions and she makes non-sensical speech Gross Range of Motion Upper Extremity ROM Assessment Within Functional Limits Lower Extremity ROM Assessment Within Functional Limits Strength Upper Extremity Strength Assessment Within Functional Limits Lower Extremity Strength Assessment Within Functional Limits Comments Strength Comments PT observes functional range only today and pt's ankles/ feet appear somewhat hypermobile in positioning. PT opens protein drink bottle for pt and she grabs it with eyes close, touches the top with her finger and then then drinks with eyes closed. Coordination Assessment Assessment Coordination Comments Does not tolerate/participate Sensation Assessment Comments Sensation Comments Does not tolerate/participate M7 PT-IP Assessment and Plan Start: 03/22/23 08:33 Freq: NEEDED Status: Active Protocol: Document 03/22/23 12:00 MB (Rec: 03/22/23 12:25 MB [id number]) PT Summary Assessment and Plan Potential Rehabilitation Potential Poor Status of Condition at Evaluation Unstable Summary Impairments Cognition,Bed Mobility, Transfers,Gait,Activity Tolerance Progress Towards Goals Slow Progress - Other Assessment Summary Pt is a lady presenting with confusion, decreased participation and decreased communication that are all barriers to skilled PT. She appears to move well in the bed and refuses further activity. PT trial to improve mobility as she participates. Goals Bed Mobility Goal Independent Transfer Goal Standby Assistance,Front Wheeled Walker Gait Goal Standby Assistance,Front Wheel Walker Gait Distance 75 Other Goals Pt will ascend and descend three steps with rail and no more than SBA. If it is discovered that pt does not have stairs by a reliable caregiver or by pt, d/c this goal. Progress LRAD recommended as appropriate. Days to Meet Goals 10 Frequency of Treatment Frequency Of Treatment Once a Day Treatment Plan Physical Therapy Treatment Plan Bed Mobility Training,Transfer Training,Gait Training, Therapeutic Exercise,Balance Retraining,Discharge Planning Weight Bearing Status Weight Bearing Status Weight Bear as Tolerated Recommendations To Nursing Amount of Assist Needed Mechanical Lift Discharge Recommendations PT Discharge Recommendations Home vs SNF Transportation Needs at Discharge Wheelchair/Cabulance
--- NOTE | 2023-03-22 13:11 | CM.DPC ---
DCP Cont. Reviewed EMR and team rounds for updates. Pt continues to remain disoriented and confused. Dr. Fitzgerald is monitoring her progress with starting Olanzapine, she is beginning to be more alert, was able to communicate with PT today, however is not able to follow PT commands, is not able to differentiate reality with delusions at this time. Plan is to continue to titrate her psych meds, while managing encephalopathy and UTI, in order to gain a better current baseline for potential SNF placement. This LETTER STAMPING MACHINE OPERATOR and AC team are also awaiting the APS assessment and recommendations for whether or not pt is deemed safe to return home, as a skilled facility vs. inpt psych are still being considered. Cont. to follow closely.
[2023-03-22 14:00] VITALS: BP 95/55; PULSE 80
--- NOTE | 2023-03-22 18:04 | PM.PN.1 ---
Subjective Subjective Interval history: Worked some with PT today. No significant change in mentation. Psych titrating up her zyprexa. Exam Vital Signs (past 8 hours): - 03/22/23 14:00 Pulse Rate 80 Blood Pressure 95/55 L Oxygen Delivery Method Room Air Oxygen Flow Rate 0 Narrative Exam Narrative: GEN: Alert and confused/disoriented, NAD HEENT:NC, Face symmetric CHEST: Respiratory excursions symmetric, CTAB CV: RRR, no M/R/G ABD: Soft, NT/ND, BT present in all 4 quadrants, no organomegaly or masses EXTR: warm, well perfused, no C/C/E SKIN: warm and dry, no rash NEURO: Alert, nonfocal Objective Labs 03/22/23 07:47 03/20/23 10:20 Labs: Laboratory Results - last 24 hr 03/22/23 07:47 WBC 5.0 RBC 3.05 L Hgb 10.3 L Hct 30.4 L MCV 99.9 MCH 33.9 MCHC 33.9 RDW 12.4 Plt Count 204 Neut % (Auto) 65.0 Lymph % (Auto) 16.8 L [place] % (Auto) 15.1 H Eos % (Auto) 2.6 Baso % (Auto) 0.5 Neut # (Auto) 3300 Lymph # (Auto) 800 L [place] # (Auto) 800 Eos # (Auto) 100 Baso # (Auto) 0 PFSH Social History marital status: unmarried,single household members: family and caregiver lives independently: No caregiver/support person: Yes housing: house pets and animals: No education level: high school occupational status: disabled Smoking Status: Never smoker alcohol intake: never Assessment & Plan Assessment & Plan narrative: 1. Acute encephalopathy, unclear if metabolic/toxic Continue to monitor. Etiology is not entirely clear. Most likely represents acute psychosis due to rapid, pressured and paranoid speech with nonsensical verbiage. 2. Hallucinations/psychosis in the setting of chronic depression/anxiety As above, continue olanzapine. Continue to monitor for improvement. Increased zyprexa to 15mg at bedtime per psych. 3. Congenital blindness Stable. Needs caregiving. 4. Bilateral hearing loss Stable, chronic. Patient is able to hear reasonably well during conversation. 5. CAUTI, not present on admission Patient refused to allow cleaning of muhammad. UA with pyuria. Start rocephin 1g x3 days and f/up urine culture. Remove muhammad and place purewick. Code status Full Prophy Lovenox Dispo Pending placement. PT eval ordered. Quality VTE Deep Vein Thrombosis/Pulmonary Embolism Present on Admission: No
[2023-03-22] MEDS: OLANZapine 2.5 MG TABLET 10 MG PO (20:46)
[2023-03-22] MEDS: TRAZODONE 50 MG TABLET 100 MG PO (20:46)
[2023-03-22 22:00] VITALS: BP 104/64; PULSE 102; RESP 16; TEMP 36.2; O2SAT 96
[2023-03-23 06:00] VITALS: BP 105/60; PULSE 99; RESP 16; TEMP 36.2; O2SAT 97
[2023-03-23] MEDS: ENOXAPARIN 40 MG/0.4 ML SYRINGE SUBCUT (08:57)
[2023-03-23] MEDS: PARoxetine 20 MG TABLET 40 MG PO (08:57)
[2023-03-23] MEDS: carBAMazepine XR 100 MG TAB 400 MG PO ×3 (08:57→21:43)
[2023-03-23] MEDS: CEFDINIR 300 MG CAPSULE PO ×2 (08:57→21:43)
[2023-03-23] MEDS: TOPIRAMATE 25 MG TABLET PO ×2 (08:57→21:44)
[2023-03-23] MEDS: ATORVASTATIN 20 MG TABLET PO (08:57)
[2023-03-23 11:07] VITALS: BP 108/55; PULSE 70; RESP 18; TEMP 36.6; O2SAT 99
--- NOTE | 2023-03-23 11:20 | PT-IP ANOTE ---
Pt refused to work with PT this morning. She states she can get up when she wants to or will use the bed to help her. PT asked pt at this time if she would like to sit up on EOB or stand, pt refused. PT will check back with pt tomorrow.
--- NOTE | 2023-03-23 12:01 | CM.DPC ---
DCP Cont. Reviewed EMR and team rounds for updates. Pt's olanzapine has been increased today to 15mg, she remains confused w/hallucinations and psychosis, however at times is oriented to self and place. Dr. Fitzgerald continues to monitor and adjust her meds. At this point, Dr. Fitzgerald is leaning towards a cerebral event that precipitated this major change in her mental status. She continues to receive IV ABO's for a UTI. PICKING MACHINE OPERATOR emailed the Vinod Plummer, the APS supervisor general that had started this investigation, requesting any updates in terms of their findings and recommendations for her d/c disposition. This PICKING MACHINE OPERATOR then received an email from his staff member who has been assigned to pt's case, Aida Rudd ([email or web address]), stating that they staffed this case after receiving my email, and that they are in agreement that it would not be in her best interest for her to go home at this point, and we think that placement in a facility would be best. This PICKING MACHINE OPERATOR sent a response asking for clarification as to who in the family has control of pt's finances, in that pt will not be returning back home. Pending response. Continue to monitor, once medically cleared we will know more about what type of facility would be the best fit.
[2023-03-23] MEDS: LORazepam 0.5 MG TABLET PO (14:31)
--- NOTE | 2023-03-23 17:39 | P.PN_ITS ---
Subjective Subjective Interval history: Patient unchanged but sleepy. Zyprexa kept at 10mg per psych. MRI brain recommended. Exam Vital Signs (past 8 hours): - 03/23/23 11:07 Temperature 97.8 F Pulse Rate 70 Respiratory Rate 18 Blood Pressure 108/55 L Pulse Oximetry 99 Oxygen Delivery Method Room Air Oxygen Flow Rate 0 Narrative Exam Narrative: GEN: Alert and confused/disoriented, NAD HEENT:NC, Face symmetric CHEST: Respiratory excursions symmetric, CTAB CV: RRR, no M/R/G ABD: Soft, NT/ND, BT present in all 4 quadrants, no organomegaly or masses EXTR: warm, well perfused, no C/C/E SKIN: warm and dry, no rash NEURO: Alert, nonfocal Objective Labs 03/22/23 07:47 03/20/23 10:20 [facility] Social History marital status: unmarried,single household members: family and caregiver lives independently: No caregiver/support person: Yes housing: house pets and animals: No education level: high school occupational status: disabled Smoking Status: Never smoker alcohol intake: never Assessment & Plan Assessment & Plan narrative: 1. Acute encephalopathy, unclear if metabolic/toxic Continue to monitor. Etiology is not entirely clear. Most likely represents acute psychosis due to rapid, pressured and paranoid speech with nonsensical verbiage. MRI pending. 2. Hallucinations/psychosis in the setting of chronic depression/anxiety As above, continue olanzapine. Continue to monitor for improvement. Continue zyprexa 10mg at bedtime per psych. 3. Congenital blindness Stable. Needs caregiving. 4. Bilateral hearing loss Stable, chronic. Patient is able to hear reasonably well during conversation. 5. CAUTI, not present on admission Patient refused to allow cleaning of muhammad. UA with pyuria. Start rocephin 1g x3 days and f/up urine culture. Remove muhammad and place purewick. Code status Full Prophy Lovenox Dispo Pending placement. PT eval rec home vs SNF. Quality VTE Deep Vein Thrombosis/Pulmonary Embolism Present on Admission: No
[2023-03-23 19:00] VITALS: BP 106/62; PULSE 74; RESP 16; TEMP 36.4; O2SAT 98
[2023-03-23] MEDS: OLANZapine 2.5 MG TABLET 10 MG PO (21:43)
[2023-03-23] MEDS: TRAZODONE 50 MG TABLET 100 MG PO (21:43)
[2023-03-24 03:00] VITALS: BP 144/72; PULSE 73; RESP 16; TEMP 36.6; O2SAT 99
[2023-03-24] MEDS: LORazepam 0.5 MG TABLET PO (08:58)
[2023-03-24] MEDS: carBAMazepine XR 100 MG TAB 400 MG PO ×3 (08:58→20:45)
[2023-03-24] MEDS: PARoxetine 20 MG TABLET 40 MG PO (08:58)
[2023-03-24] MEDS: ENOXAPARIN 40 MG/0.4 ML SYRINGE SUBCUT (08:58)
[2023-03-24] MEDS: TOPIRAMATE 25 MG TABLET PO ×2 (08:58→20:46)
[2023-03-24] MEDS: CEFDINIR 300 MG CAPSULE PO (08:58)
[2023-03-24] MEDS: ATORVASTATIN 20 MG TABLET PO (08:58)
[2023-03-24 09:38] LABS: Add Manual Diff / Slide Review NO; Basophils Absolute Auto 0 /uL (0-100); Basophils Percent Auto 0.9 % (0-2); Eosinophils Absolute Auto 200 /uL (0-450); Eosinophils Percent Auto 4.4 % (2-4); Hematocrit 32.9 % (36-46); Hemoglobin 11.1 g/dL (12.0-16.0); Lymphocytes Absolute Auto 800 /uL (1100-4500); Lymphocytes Percent Auto 21.2 % (25-40); Mean Corpuscular HGB Conc 33.8 % (30-36); Mean Corpuscular Hemoglobin 33.8 PG (26-34); Mean Corpuscular Volume 99.9 fL (80-100); Monocytes Absolute Auto 500 /uL (0-900); Monocytes Percent Auto 14.5 % (3-14); Neutrophils Absolute Auto 2100 /uL (1500-7000); Platelet Count 262 X10^3/uL (150-400); Red Blood Cell Count 3.29 X10^6/uL (4.0-5.2); Red Cell Distribution Width 12.7 % (11.6-14.8); White Blood Cell Count 3.6 X10^3/uL (4.5-11.0)
[2023-03-24 09:49] LABS: BUN Creatinine Ratio 41.2 (6-22); Blood Urea Nitrogen 28 mg/dL (7-17); Calcium 9.2 mg/dL (8.4-10.2); Carbon Dioxide 30 mmol/L (22-32); Chloride 100 mmol/L (98-107); Estimated Glomerular Filt Rate > 60 mL/min (>60); Glucose 105 mg/dL (70-100); HEMOLYSIS < 15 (0-50); Sodium 137 mmol/L (137-145)
[2023-03-24 10:40] VITALS: BP 119/66; PULSE 83; RESP 16; TEMP 36.3; O2SAT 97
--- NOTE | 2023-03-24 16:55 | PT-IP ANOTE ---
Pt in supine when approached for therapy. Pt refuses treatment stating she's already walked 7,799 steps and she's too tired.
[2023-03-24 17:00] VITALS: BP 107/58; PULSE 79; RESP 16; TEMP 36.2; O2SAT 98
--- NOTE | 2023-03-24 18:37 | PM.PN.1 ---
Subjective Subjective Interval history: Patient unchanged but sleepy. Zyprexa kept at 10mg per psych. MRI brain recommended and has been ordered. Exam Vital Signs (past 8 hours): - 03/24/23 10:40 Temperature 97.3 F L Pulse Rate 83 Respiratory Rate 16 Blood Pressure 119/66 Pulse Oximetry 97 Oxygen Delivery Method Room Air Oxygen Flow Rate 0 Narrative Exam Narrative: GEN: Sleepy, confused/disoriented, NAD HEENT:NC, Face symmetric CHEST: Respiratory excursions symmetric, CTAB CV: RRR, no M/R/G ABD: Soft, NT/ND, BT present in all 4 quadrants, no organomegaly or masses EXTR: warm, well perfused, no C/C/E SKIN: warm and dry, no rash NEURO: mp fpca; deficits Objective Labs 03/24/23 09:28 03/24/23 09:28 Labs: Laboratory Results - last 24 hr 03/24/23 09:28 WBC 3.6 L RBC 3.29 L Hgb 11.1 L Hct 32.9 L MCV 99.9 MCH 33.8 MCHC 33.8 RDW 12.7 Plt Count 262 Neut % (Auto) 59.0 Lymph % (Auto) 21.2 L [place] % (Auto) 14.5 H Eos % (Auto) 4.4 H Baso % (Auto) 0.9 Neut # (Auto) 2100 Lymph # (Auto) 800 L [place] # (Auto) 500 Eos # (Auto) 200 Baso # (Auto) 0 Sodium 137 Potassium 4.0 Chloride 100 Carbon Dioxide 30 BUN 28 H Creatinine 0.68 Estimated GFR > 60 BUN/Creatinine Ratio 41.2 H Glucose 105 H Calcium 9.2 PFSH Social History marital status: unmarried,single household members: family and caregiver lives independently: No caregiver/support person: Yes housing: house pets and animals: No education level: high school occupational status: disabled Smoking Status: Never smoker alcohol intake: never Assessment & Plan Assessment & Plan narrative: 1. Acute encephalopathy, unclear if metabolic/toxic Continue to monitor. Etiology is not entirely clear. Most likely represents acute psychosis due to rapid, pressured and paranoid speech with nonsensical verbiage. MRI pending. 2. Hallucinations/psychosis in the setting of chronic depression/anxiety As above, continue olanzapine. Continue to monitor for improvement. Continue zyprexa 10mg at bedtime per psych. 3. Congenital blindness Stable. Needs caregiving. 4. Bilateral hearing loss Stable, chronic. Patient is able to hear reasonably well during conversation. 5. CAUTI, not present on admission Patient refused to allow cleaning of muhammad. UA with pyuria. Start rocephin 1g x3 days and f/up urine culture. Remove muhammad and place purewick. Code status Full Prophy Lovenox Dispo Pending placement. PT eval rec home vs SNF. Quality VTE Deep Vein Thrombosis/Pulmonary Embolism Present on Admission: No
[2023-03-24] MEDS: OLANZapine 2.5 MG TABLET 10 MG PO (20:46)
[2023-03-24] MEDS: TRAZODONE 50 MG TABLET 100 MG PO (20:46)
[2023-03-25 02:27] VITALS: BP 135/74; PULSE 71; RESP 16; TEMP 36.6; O2SAT 98
--- NOTE | 2023-03-25 08:50 | CM.DPC ---
DCP Cont. Reviewed EMR and team rounds for status updates. Pt continues w/confusion and psychosis, is alert at times, however only intermittently makes any congruent sense. Pt continues on 10mg Olanzapine, MRI of the head is ordered, hopefully will be completed today. Pt refusing PT. DCP team will continue to monitor for appropriate facility setting once medically stable.
[2023-03-25] MEDS: ATORVASTATIN 20 MG TABLET PO (09:23)
[2023-03-25] MEDS: carBAMazepine XR 100 MG TAB 400 MG PO ×3 (09:23→20:27)
[2023-03-25] MEDS: PARoxetine 20 MG TABLET 40 MG PO (09:23)
[2023-03-25] MEDS: TOPIRAMATE 25 MG TABLET PO ×2 (09:23→20:27)
[2023-03-25] MEDS: ENOXAPARIN 40 MG/0.4 ML SYRINGE SUBCUT (09:23)
[2023-03-25 10:35] VITALS: BP 119/71; PULSE 82; RESP 20; TEMP 36.6; O2SAT 98
--- NOTE | 2023-03-25 12:17 | CM.DPC ---
DCP Cont. This REAM CUTTER completed and faxed the Medicaid [facility] long-term care application. Will follow closely for updates.
--- NOTE | 2023-03-25 12:19 | PT.IPTN ---
Current Diagnoses Hyperlipidemia, unspecified (03/14/23) Major depressive disorder, recurrent, moderate (03/14/23) Generalized anxiety disorder (03/14/23) Epilepsy, unspecified, not intractable, without status epilepticus (03/14/23) Other insomnia (03/14/23) Metabolic encephalopathy (03/14/23) Gastro-esophageal reflux disease without esophagitis (03/14/23) Altered mental status, unspecified (03/14/23) Hyperglycemia, unspecified (03/14/23) Physical Therapy Treatment Note M2 PT-IP Current Condition Start: 03/22/23 08:33 Freq: NEEDED Status: Active Protocol: Document 03/22/23 12:00 MB (Rec: 03/22/23 12:25 MB [id number]) Physical Therapy Current Condition Current Condition Evaluation Date 03/22/23 Treatment Diagnosis Confusion, epilepsy M3 PT-IP Subjective Start: 03/22/23 08:33 Freq: NEEDED Status: Active Protocol: Document 03/25/23 12:15 AB (Rec: 03/25/23 12:18 AB [id number]) Subjective Physical Therapy Visit Type Type Administrative Note Notes checked on pt and initiated PT . pt with confusion and stated that she has broken legs and will be casted today. pt keeps her eyes closed throughout PT visit. educated pt on PT and importance of PT . instructed pt to sit on the EOB and pt stated that she cannot and for PT to go bug somebody else. pt becoming agitated and cannot be redirected. pt has been refusing PT for the passed few days. pt is not appropriate for PT at this time. informed nurse, hospitalist and clinical case manager that PT will be d/c'd. M7 PT-IP Assessment and Plan Start: 03/22/23 08:33 Freq: NEEDED Status: Active Protocol: Document 03/25/23 12:15 AB (Rec: 03/25/23 12:18 AB [id number]) PT Summary Assessment and Plan Frequency of Treatment Frequency Of Treatment Discharge
--- NOTE | 2023-03-25 13:15 | P.PN_ITS ---
Subjective Subjective Interval history: Patient unchanged, she remains confused, talking about going to school today and that we are prohibiting her from going. She keeps her eyes closed, fidgets, but left alone remains quiet. It is unclear if she is distracted by internal stimuli. Exam Vital Signs (past 8 hours): - 03/25/23 10:35 Temperature 98 F Pulse Rate 82 Respiratory Rate 20 Blood Pressure 119/71 Pulse Oximetry 98 Oxygen Flow Rate 0 Oxygen Delivery Method Room Air Oxygen Flow Rate 0 Narrative Exam Narrative: GEN: Sleepy, confused/disoriented, NAD HEENT:NC, Face symmetric CHEST: Respiratory excursions symmetric, CTAB CV: RRR, no M/R/G ABD: Soft, NT/ND, BT present in all 4 quadrants, no organomegaly or masses EXTR: warm, well perfused, no C/C/E SKIN: warm and dry, no rash NEURO: mp fpca; deficits Objective Labs 03/24/23 09:28 03/24/23 09:28 [facility] Social History marital status: unmarried,single household members: family and caregiver lives independently: No caregiver/support person: Yes housing: house pets and animals: No education level: high school occupational status: disabled Smoking Status: Never smoker alcohol intake: never Assessment & Plan Assessment & Plan narrative: 1. Acute encephalopathy, unclear if metabolic/toxic or due to psychosis. Continue to monitor. Etiology is not entirely clear. Most likely represents acute psychosis due to rapid, pressured and paranoid speech with nonsensical verbiage. Psych recommended MRI but MRI unable to be performed as patient has a permanently implanted hearing aid. - will need updated recommendations from psychiatry once available on Wednesday 03/28. No provider available until then. 2. Hallucinations/psychosis in the setting of chronic depression/anxiety As above, continue olanzapine. Continue to monitor for improvement. Continue zyprexa 10mg at bedtime per psych. will need update from psychiatry once available, not available until Tuesday now. 3. Congenital blindness Stable. Needs caregiving. 4. Bilateral hearing loss Stable, chronic. Patient is able to hear reasonably well during conversation. 5. CAUTI, not present on admission, resolved Patient refused to allow cleaning of muhammad. UA with pyuria and cultures with mccann sensitive E. coli Started rocephin 1g x3 days now complete. Removed muhammad and placed purewick instead. Code status Full Prophy Lovenox Dispo Pending placement. PT eval rec home vs SNF. Quality VTE Deep Vein Thrombosis/Pulmonary Embolism Present on Admission: No
[2023-03-25] MEDS: OLANZapine 2.5 MG TABLET 10 MG PO (20:27)
[2023-03-25] MEDS: TRAZODONE 50 MG TABLET 100 MG PO (20:27)
[2023-03-25 22:24] VITALS: BP 102/63; PULSE 83; RESP 16; TEMP 37.1; O2SAT 98
--- NOTE | 2023-03-26 08:37 | CM.DPC ---
DCP Cont. Reviewed EMR and team rounds for updates. This ONLINE MEDIA BUYER emailed pt's assigned APS investigator claims yesterday and requested that they initiate the Guardian/Court Appointed Visitor process for pt, due to no DPOA, no decisional capacity, and unsafe d/c to the home environment. ONLINE MEDIA BUYER called and left a message for Vinod Plummer, the APS maintenance supervisor 2nd shift, per his request to discuss this, however he is not working this weekend. Will need f/u on Tuesday. Vinod Plummer: [phone] See Email this ONLINE MEDIA BUYER sent 03/25/23: Brody Parra, I?m checking in with you about Anna Tran, BD: 67 ? I did fax the [facility] fast-track application today, knowing that Anna will need long-term placement in a facility. Knowing that, she will need a Guardian, as she does not have a DPOA for Healthcare, she?s not safe to go home, and she does have active Medicaid. We know from experience that [facility] cannot officially process her application without a DPOA or Guardian. Can you please initiate the process for Guradianship/Assigned Court Visitor? She remains confused and psychotic with hallucinations, which is beginning to look like her new normal. ? Thanks!! Lennie
[2023-03-26 12:43] VITALS: BP 92/61; PULSE 79; RESP 18; TEMP 36.6; O2SAT 98
[2023-03-26] MEDS: carBAMazepine XR 100 MG TAB 400 MG PO ×2 (16:16→20:42)
--- NOTE | 2023-03-26 17:23 | PC.NURSE ---
Pt resting at interval t/o day Eatting independently most of time. Purwick in place. Draining clear urine Call light w/in reach/bed alarm on for pt safety. Continue w/plan of care.
--- NOTE | 2023-03-26 17:29 | P.PN_ITS ---
Subjective Subjective Date Patient Seen: 03/26/23 Time Patient Seen: 08:00 Interval history: She keeps her eyes closed. She appears to be responding to internal stimuli and is speaking while I am in the room, but not directed at me. Her speech is clearly uttered, but word salad. Exam Vital Signs (past 8 hours): - 03/26/23 12:43 Temperature 97.9 F Pulse Rate 79 Respiratory Rate 18 Blood Pressure 92/61 Pulse Oximetry 98 Oxygen Flow Rate 0 Oxygen Delivery Method Room Air Oxygen Flow Rate 0 Narrative Exam Narrative: GEN: no acute distress CHEST: Respiratory excursions symmetric, clear bilaterally CV: regular rate and rhythm ABD: Soft, nontendern EXTR: warm, well perfused, no C/C/E SKIN: warm and dry, no rash NEURO: speaking word salad, appears to be responding to internal stimuli, not oriented Objective Labs 03/24/23 09:28 03/24/23 09:28 [facility] Social History marital status: unmarried,single household members: family and caregiver lives independently: No caregiver/support person: Yes housing: house pets and animals: No education level: high school occupational status: disabled Smoking Status: Never smoker alcohol intake: never Assessment & Plan Assessment & Plan narrative: 1. Acute encephalopathy, unclear if metabolic/toxic or due to psychosis. Continue to monitor. Etiology is not entirely clear. Most likely represents acute psychosis due to rapid, pressured and paranoid speech with nonsensical verbiage. Psych recommended MRI but MRI unable to be performed as patient has a permanently implanted hearing aid. - will need updated recommendations from psychiatry once available on Wednesday 03/28. No provider available until then. 2. Hallucinations/psychosis in the setting of chronic depression/anxiety As above, continue olanzapine. Continue to monitor for improvement. Continue zyprexa 10mg at bedtime per psych. will need update from psychiatry once available, not available until Tuesday now. 3. Congenital blindness Stable. Needs caregiving. 4. Bilateral hearing loss Stable, chronic. Patient is able to hear reasonably well during conversation. 5. CAUTI, not present on admission, resolved Patient refused to allow cleaning of muhammad. UA with pyuria and cultures with mccann sensitive E. coli Started rocephin 1g x3 days now complete. Removed muhammad and placed purewick instead. Quality VTE Deep Vein Thrombosis/Pulmonary Embolism Present on Admission: No
[2023-03-26] MEDS: TRAZODONE 50 MG TABLET 100 MG PO (20:42)
[2023-03-26] MEDS: OLANZapine 2.5 MG TABLET 10 MG PO (20:42)
[2023-03-26] MEDS: TOPIRAMATE 25 MG TABLET PO (20:42)
[2023-03-26 21:18] VITALS: BP 121/56; PULSE 89; RESP 17; TEMP 36.3; O2SAT 99
--- NOTE | 2023-03-27 06:26 | PC.NURSE ---
Patient refused physical assessment. Discussed importance of thorough medical care including all aspects of a physical assessment. Patient continued to refuse. Patient is aware that she is at [facility] but also states to this RN that it is her house as well as stating that she needed to go home. Due to patient's refusal of assessment from this RN, another RN was asked to administer medication in an effort to create rapport. Patient accepted medication from RN Nir. This RN was able to complete a limited physical assessment on the patient, as much as she would answer and was plainly visible. Patient able to state date of but refused to state name you already know all that, I'm sick of the questions, they're all the same. Patient in no apparent cardiovascular or respiratory distress, respirations equal even unlabored, cap refill <2sec, alert to self. Patient maintains hearing aide and bilateral prosthetic eyes.
--- NOTE | 2023-03-27 08:18 | CM.DPC ---
DCP Cont. Reviewed EMR for status updates. No changes, pt continues to respond to internal stimuli, presents as guarded and paranoid at times, with periods of lucidity. Plan cont. to be to discuss case with APS again on Tuesday re: d/c disposition.
[2023-03-27] MEDS: LORazepam 0.5 MG TABLET PO ×2 (08:53→21:04)
[2023-03-27] MEDS: TOPIRAMATE 25 MG TABLET PO ×2 (08:53→20:07)
[2023-03-27] MEDS: ENOXAPARIN 40 MG/0.4 ML SYRINGE SUBCUT (08:53)
[2023-03-27] MEDS: ATORVASTATIN 20 MG TABLET PO (08:53)
[2023-03-27] MEDS: PARoxetine 20 MG TABLET 40 MG PO (08:54)
[2023-03-27] MEDS: carBAMazepine XR 100 MG TAB 400 MG PO ×3 (08:54→20:07)
[2023-03-27 09:00] VITALS: BP 140/87; PULSE 98; RESP 16; TEMP 36.2; O2SAT 97
--- NOTE | 2023-03-27 14:21 | P.PN_ITS ---
Subjective Subjective Date Patient Seen: 03/27/23 Interval history: Pt with eyes closed, speech clear but non-sensical, repetition of seemingly random numbers Exam Vital Signs (past 8 hours): - 03/27/23 09:00 Temperature 97.1 F L Pulse Rate 98 H Respiratory Rate 16 Blood Pressure 140/87 Pulse Oximetry 97 Oxygen Delivery Method Room Air Oxygen Flow Rate 0 Objective Labs 03/24/23 09:28 03/24/23 09:28 [facility] Social History marital status: unmarried,single household members: family and caregiver lives independently: No caregiver/support person: Yes housing: house pets and animals: No education level: high school occupational status: disabled Smoking Status: Never smoker alcohol intake: never Assessment & Plan Assessment & Plan narrative: 1. Acute encephalopathy, unclear if metabolic/toxic or due to psychosis. Continue to monitor. Etiology is not entirely clear. Most likely represents acute psychosis due to rapid, pressured and paranoid speech with nonsensical verbiage. Psych recommended MRI but MRI unable to be performed as patient has a permanently implanted hearing aid. - will need updated recommendations from psychiatry once available on Wednesday 03/28. No provider available until then. 2. Hallucinations/psychosis in the setting of chronic depression/anxiety As above, continue olanzapine. Continue to monitor for improvement. Continue zyprexa 10mg at bedtime per psych. will need update from psychiatry once available, not available until Tuesday now. 3. Congenital blindness Stable. Needs care giving. 4. Bilateral hearing loss Stable, chronic. Patient is able to hear reasonably well during conversation. 5. CAUTI, not present on admission, resolved Patient refused to allow cleaning of muhammad. UA with pyuria and cultures with mccann sensitive E. coli Started rocephin 1g x3 days now complete. Removed muhammad and placed purewick instead. Awaiting psych placement. Quality VTE Deep Vein Thrombosis/Pulmonary Embolism Present on Admission: No
[2023-03-27 20:07] VITALS: BP 125/73; PULSE 99; RESP 17; TEMP 36.7; O2SAT 97
[2023-03-27] MEDS: OLANZapine 2.5 MG TABLET 10 MG PO (20:07)
[2023-03-27] MEDS: TRAZODONE 50 MG TABLET 100 MG PO (20:07)
--- NOTE | 2023-03-28 03:23 | PC.NURSE ---
film processing shift supervisor: Patient is alert & accurately stated name, birthday, place, month/year, however appears generally confused and speaks nonsensically most of the time. Vital signs are stable, 97% on RA. Able to follow commands, compliant w/ care. Medications given w/ pudding, tolerated well. Incontinent of urine and stool, brief changes & skin care performed. Patient had a hard, baseball-sized BM tonight, obtained order for a stool softener per MD Koenig. Denies pain, nausea, SOB. Fall precautions in place.
[2023-03-28 08:00] VITALS: BP 115/75; PULSE 100; RESP 18; TEMP 37; O2SAT 98
[2023-03-28] MEDS: carBAMazepine XR 100 MG TAB 400 MG PO ×3 (08:16→20:13)
[2023-03-28] MEDS: ACETAMINOPHEN 325 MG TABLET 650 MG PO ×2 (08:16→20:15)
[2023-03-28] MEDS: SENNOSIDES 8.6 MG TABLET 17.2 MG PO (08:16)
[2023-03-28] MEDS: PARoxetine 20 MG TABLET 40 MG PO (08:16)
[2023-03-28] MEDS: LORazepam 0.5 MG TABLET PO (08:17)
[2023-03-28] MEDS: ATORVASTATIN 20 MG TABLET PO (08:17)
[2023-03-28] MEDS: TOPIRAMATE 25 MG TABLET PO ×2 (08:17→20:14)
[2023-03-28] MEDS: ENOXAPARIN 40 MG/0.4 ML SYRINGE SUBCUT (08:17)
--- NOTE | 2023-03-28 14:51 | PM.PN.1 ---
Subjective Subjective Date Patient Seen: 03/27/23 Interval history: Pt with eyes closed, speech clear but non-sensical, repetition of seemingly random things Exam Vital Signs (past 8 hours): - 03/28/23 08:00 Temperature 98.6 F Pulse Rate 100 H Respiratory Rate 18 Blood Pressure 115/75 Pulse Oximetry 98 Oxygen Flow Rate 0 Oxygen Delivery Method Room Air Oxygen Flow Rate 0 Narrative Exam Narrative: GEN: no acute distress CHEST: Respiratory excursions symmetric, clear bilaterally CV: regular rate and rhythm ABD: Soft, nontendern EXTR: warm, well perfused, no C/C/E SKIN: warm and dry, no rash NEURO: speaking word salad, appears to be responding to internal stimuli, not oriented Objective Labs 03/24/23 09:28 03/24/23 09:28 [facility] Social History marital status: unmarried,single household members: family and caregiver lives independently: No caregiver/support person: Yes housing: house pets and animals: No education level: high school occupational status: disabled Smoking Status: Never smoker alcohol intake: never Assessment & Plan Assessment & Plan narrative: 1. Acute encephalopathy, unclear if metabolic/toxic or due to psychosis. Continue to monitor. Etiology is not entirely clear. Most likely represents acute psychosis due to rapid, pressured and paranoid speech with nonsensical verbiage. Psych recommended MRI but MRI unable to be performed as patient has a permanently implanted hearing aid. - will need updated recommendations from psychiatry, asked for repeat evaluation today. 2. Hallucinations/psychosis in the setting of chronic depression/anxiety As above, continue olanzapine. Continue to monitor for improvement. Continue zyprexa 10mg at bedtime per psych. will need update from psychiatry once available. 3. Congenital blindness Stable. Needs care giving. 4. Bilateral hearing loss Stable, chronic. Patient is able to hear reasonably well during conversation. 5. CAUTI, not present on admission, resolved Patient refused to allow cleaning of muhammad. UA with pyuria and cultures with mccann sensitive E. coli Started rocephin 1g x3 days now complete. Removed muhammad and placed purewick instead. Awaiting possible improvement in psychosis prior to placement, though timing is suspected to be prolonged. Quality VTE Deep Vein Thrombosis/Pulmonary Embolism Present on Admission: No
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
[2023-03-28 19:46] VITALS: BP 125/75; PULSE 94; RESP 16; TEMP 36.4; O2SAT 97
[2023-03-28] MEDS: OLANZapine 2.5 MG TABLET 10 MG PO (20:14)
[2023-03-28] MEDS: TRAZODONE 50 MG TABLET 100 MG PO (20:14)
--- NOTE | 2023-03-28 23:33 | PC.NURSE ---
Patient was able to state her name, birthdate, age, year and place. She does answer some questions appropriately but at times talks to herself and can be nonsensical. She is blind w/bilateral artificial eyes. Breath sounds CTA with RA sat of 97%. HRR. BT present and abdomen is soft; unknown if she has fecal incontinence. Incontinent of urine and is wearing a brief. Is able to move herself in bed but does have a pressure injury on right buttock (allevyn dressing CDI) so staff reposition her q2h if she has not repositioned herself. Gait not assessed and per PT note was refusing PT so therapy was discontinued. Refusing SCD's but stated that's why I'm moving my legs around. Did complain of generalized discomfort but unable to quantify severity and had FLACC of 2 so Tylenol administered and she has been mostly sleeping since that time. Refused oral care as complains of mouth pain and jaw discomfort but was agreeable to using chapstick on lips as they are dry and cracked. Fall risk score is high and bed alarm is activated.
[2023-03-29 08:00] VITALS: BP 126/61; PULSE 87; RESP 18; TEMP 36.9; O2SAT 98
[2023-03-29] MEDS: PARoxetine 20 MG TABLET 40 MG PO (08:14)
[2023-03-29] MEDS: ATORVASTATIN 20 MG TABLET PO (08:14)
[2023-03-29] MEDS: TOPIRAMATE 25 MG TABLET PO ×2 (08:14→21:41)
[2023-03-29] MEDS: carBAMazepine XR 100 MG TAB 400 MG PO ×3 (08:14→21:41)
[2023-03-29] MEDS: LORazepam 0.5 MG TABLET PO (08:14)
[2023-03-29] MEDS: ENOXAPARIN 40 MG/0.4 ML SYRINGE SUBCUT (08:15)
[2023-03-29] MEDS: SENNOSIDES 8.6 MG TABLET 17.2 MG PO (08:16)
--- NOTE | 2023-03-29 12:14 | P.PN_ITS ---
Subjective Subjective Date Patient Seen: 03/27/23 Interval history: Pt with eyes closed, speech clear but non-sensical, repetition of seemingly random things Exam Vital Signs (past 8 hours): - 03/29/23 08:00 Temperature 98.4 F Pulse Rate 87 Respiratory Rate 18 Blood Pressure 126/61 Pulse Oximetry 98 Oxygen Flow Rate 0 Oxygen Delivery Method Room Air Oxygen Flow Rate 0 Narrative Exam Narrative: GEN: no acute distress CHEST: Respiratory excursions symmetric, clear bilaterally CV: regular rate and rhythm ABD: Soft, nontendern EXTR: warm, well perfused, no C/C/E SKIN: warm and dry, no rash NEURO: speaking word salad, appears to be responding to internal stimuli, not oriented Objective Labs 03/24/23 09:28 03/24/23 09:28 COUNTS INCLUDE 234 BEDS AT THE [facility] Social History marital status: unmarried,single household members: family and caregiver lives independently: No caregiver/support person: Yes housing: house pets and animals: No education level: high school occupational status: disabled Smoking Status: Never smoker alcohol intake: never Assessment & Plan Assessment & Plan narrative: 1. Acute encephalopathy, unclear if metabolic/toxic or due to psychosis. Continue to monitor. Etiology is not entirely clear. Most likely represents acute psychosis due to rapid, pressured and paranoid speech with nonsensical verbiage. Psych recommended MRI but MRI unable to be performed as patient has a permanently implanted hearing aid. - will need updated recommendations from psychiatry, asked for repeat evaluation today and Dr. Fitzgerald to evaluate later. 2. Hallucinations/psychosis in the setting of chronic depression/anxiety As above, continue olanzapine. Continue to monitor for improvement. Continue zyprexa 10mg at bedtime per psych. will need update from psychiatry once available. 3. Congenital blindness Stable. Needs care giving. 4. Bilateral hearing loss Stable, chronic. Patient is able to hear reasonably well during conversation. 5. CAUTI, not present on admission, resolved Patient refused to allow cleaning of muhammad. UA with pyuria and cultures with mccann sensitive E. coli Started rocephin 1g x3 days now complete. Removed muhammad and placed purewick instead. Awaiting possible improvement in psychosis prior to placement, though timing is suspected to be prolonged. Quality VTE Deep Vein Thrombosis/Pulmonary Embolism Present on Admission: No
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
[2023-03-29 21:40] VITALS: BP 115/57; PULSE 93; RESP 18; TEMP 36.7; O2SAT 99
[2023-03-29] MEDS: TRAZODONE 50 MG TABLET 100 MG PO (21:41)
[2023-03-29] MEDS: OLANZapine 2.5 MG TABLET 10 MG PO (21:42)
[2023-03-30 06:33] LABS: Add Manual Diff / Slide Review NO; Basophils Absolute Auto 0 /uL (0-100); Basophils Percent Auto 0.7 % (0-2); Eosinophils Absolute Auto 200 /uL (0-450); Eosinophils Percent Auto 4.1 % (2-4); Hematocrit 29.9 % (36-46); Hemoglobin 10.3 g/dL (12.0-16.0); Lymphocytes Absolute Auto 1200 /uL (1100-4500); Lymphocytes Percent Auto 24.6 % (25-40); Mean Corpuscular HGB Conc 34.4 % (30-36); Mean Corpuscular Hemoglobin 33.8 PG (26-34); Mean Corpuscular Volume 98.4 fL (80-100); Monocytes Absolute Auto 700 /uL (0-900); Monocytes Percent Auto 14.2 % (3-14); Neutrophils Absolute Auto 2800 /uL (1500-7000); Neutrophils Percent Auto 56.4 % (50-75); Platelet Count 268 X10^3/uL (150-400); Red Blood Cell Count 3.04 X10^6/uL (4.0-5.2); Red Cell Distribution Width 12.6 % (11.6-14.8); White Blood Cell Count 4.9 X10^3/uL (4.5-11.0)
[2023-03-30 06:44] LABS: BUN Creatinine Ratio 23.5 (6-22); Blood Urea Nitrogen 16 mg/dL (7-17); Calcium 8.9 mg/dL (8.4-10.2); Carbon Dioxide 28 mmol/L (22-32); Chloride 102 mmol/L (98-107); Estimated Glomerular Filt Rate > 60 mL/min (>60); Glucose 77 mg/dL (70-100); HEMOLYSIS < 15 (0-50); Potassium 4.3 mmol/L (3.4-5.1); Sodium 136 mmol/L (137-145)
[2023-03-30] MEDS: TOPIRAMATE 25 MG TABLET PO ×2 (08:45→21:00)
[2023-03-30] MEDS: PARoxetine 20 MG TABLET 40 MG PO (08:45)
[2023-03-30] MEDS: ATORVASTATIN 20 MG TABLET PO (08:45)
[2023-03-30] MEDS: carBAMazepine XR 100 MG TAB 400 MG PO ×3 (08:46→20:59)
[2023-03-30] MEDS: ENOXAPARIN 40 MG/0.4 ML SYRINGE SUBCUT (08:46)
[2023-03-30 08:56] VITALS: BP 116/69; PULSE 81; RESP 16; TEMP 36.6; O2SAT 100
--- NOTE | 2023-03-30 10:23 | P.PN_ITS ---
Subjective Subjective Date Patient Seen: 03/30/23 Time Patient Seen: 08:00 Interval history: She is resting comfortably in bed. She states she is in the hospital because her teeth hurt. Exam Vital Signs (past 8 hours): - 03/30/23 08:56 Temperature 97.8 F Pulse Rate 81 Respiratory Rate 16 Blood Pressure 116/69 Pulse Oximetry 100 Oxygen Delivery Method Room Air Oxygen Flow Rate 0 Narrative Exam Narrative: GEN: no acute distress CHEST: clear bilaterally CV: regular rate and rhythm ABD: Soft, nontender EXTR: warm, well perfused Objective Labs 03/30/23 06:00 03/30/23 06:00 Labs: Laboratory Results - last 24 hr 03/30/23 06:00 WBC 4.9 RBC 3.04 L Hgb 10.3 L Hct 29.9 L MCV 98.4 MCH 33.8 MCHC 34.4 RDW 12.6 Plt Count 268 Neut % (Auto) 56.4 Lymph % (Auto) 24.6 L [place] % (Auto) 14.2 H Eos % (Auto) 4.1 H Baso % (Auto) 0.7 Neut # (Auto) 2800 Lymph # (Auto) 1200 [place] # (Auto) 700 Eos # (Auto) 200 Baso # (Auto) 0 Sodium 136 L Potassium 4.3 Chloride 102 Carbon Dioxide 28 BUN 16 Creatinine 0.68 Estimated GFR > 60 BUN/Creatinine Ratio 23.5 H Glucose 77 Calcium 8.9 PFSH Social History marital status: unmarried,single household members: family and caregiver lives independently: No caregiver/support person: Yes housing: house pets and animals: No education level: high school occupational status: disabled Smoking Status: Never smoker alcohol intake: never Assessment & Plan Assessment & Plan narrative: 1. Acute encephalopathy, unclear if metabolic/toxic or due to psychosis. Continue to monitor. Etiology is not entirely clear. Most likely represents acute psychosis due to rapid, pressured and paranoid speech with nonsensical verbiage. Psych recommended MRI but MRI unable to be performed as patient has a permanently implanted hearing aid. Appreciate psychiatry recommendations for placement for further care. 2. Hallucinations/psychosis in the setting of chronic depression/anxiety As above, continue olanzapine. Continue to monitor for improvement. Continue zyprexa 10mg at bedtime per psych. 3. Congenital blindness Stable. Needs care giving. 4. Bilateral hearing loss Stable, chronic. Patient is able to hear reasonably well during conversation. 5. CAUTI, not present on admission, resolved Patient refused to allow cleaning of muhammad. UA with pyuria and cultures with mccann sensitive E. coli Started rocephin 1g x3 days now complete. Removed muhammad and placed purewick instead. Dispo: Pending Quality VTE Deep Vein Thrombosis/Pulmonary Embolism Present on Admission: No
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
[2023-03-30 20:00] VITALS: BP 111/67; PULSE 98; RESP 17; TEMP 36.6; O2SAT 98
[2023-03-30] MEDS: OLANZapine 2.5 MG TABLET 10 MG PO (21:00)
[2023-03-30] MEDS: TRAZODONE 50 MG TABLET 100 MG PO (21:00)
[2023-03-31 08:00] VITALS: BP 114/62; PULSE 68; RESP 16; TEMP 36.2; O2SAT 99
--- NOTE | 2023-03-31 08:30 | PM.DS.1 ---
History of Present Illness History of Present Illness Chief complaint: Confused, epileptic, NO appetite Narrative: 57 years old female with history of longstanding depression, anxiety, sleep disturbance, chronic hearing loss more on the right side, blind requiring assistance, hyperlipidemia, GERD, seizure presented to the ER with altered mental status.. She lives with her niece who is her primary caregiver and there was a concern that the niece is trying to get into her medications. She has not been taking her medications in the last couple of days. Reports some nausea but no vomiting, no fever no shortness of breath. She has been seen by her psychiatrist recently and there was not any change of her home medications. The patient was increasingly anxious because of her knees and knees both have substance issue problems. In the ER her initial labs showed WBC 12.6, H&H 13.2?38.9, platelets 317, INR 1.1, sodium 139, potassium 4, creatinine 0.64, blood sugar 296, lactic acid 1.5, UA negative, AST/ALT 67/40, UA negative, U tox positive for THC, chest x-ray normal, CT of the head unremarkable, abdominal ultrasound shows cholelithiasis but no signs of acute cholecystitis. In the ER she was given ketorolac 15 mg IV, NS 1 L bolus and was decided to be admitted for observation. Discharge Providers Provider Date of admission: 03/14/23 22:39 Discharge Date: 03/31/23 Primary care physician: Nicolas Collazo MD Consults: 03/14/23 15:39 Consult to [facility] - Director Of Anesthesia Services Stat Comment: 03/15/23 00:41 Consult to Discharge Planning Routine Comment: 03/16/23 11:47 Consult to Physician Routine Comment: Consulting Provider: Stan Fitzgerald Reason for consultation: is mentation related to depression? medication recommendations 03/21/23 10:20 Consult to Physical Therapy Evaluate & Treat Comment: Physician Instructions: Evaluate and Treat Discharge provider: Robb Winter DO Summary Hospital Course Discharge Diagnosis: 1. Acute encephalopathy, unclear if metabolic/toxic or due to psychosis. Continue to monitor. Etiology is not entirely clear. Most likely represents acute psychosis due to rapid, pressured and paranoid speech with nonsensical verbiage. Psych recommended MRI but MRI unable to be performed as patient has a permanently implanted hearing aid. Appreciate psychiatry recommendations to continue zyprexa 10mg at bedtime and they will see in clinic. 2. Hallucinations/psychosis in the setting of chronic depression/anxiety As above, continue olanzapine. Continue to monitor for improvement. Continue zyprexa 10mg at bedtime per psych. F/up with Dr. Fitzgerald in clinic in 2 weeks upon discharge. 3. Congenital blindness Stable. Needs care giving with family. 4. Bilateral hearing loss Stable, chronic. Patient is able to hear reasonably well during conversation. 5. CAUTI, not present on admission, resolved Patient refused to allow cleaning of muhammad. UA with pyuria and cultures with mccann sensitive E. coli Started rocephin 1g x3 days now complete. Removed muhammad and placed purewick instead. Hospital Course: Admitted for acute AMS with concern for acute psychosis. Patient seen by psych and started on zyprexa which helped this some but she continued having nonsensical and paranoid speech mixed with times of coherence. Dr. Fitzgerald psych evaluated an will continue to see in clinic. Zyprexa continued on discharge. VENEER TAPING MACHINE OPERATOR attempted placement, but patient denied everywhere. They arranged [facility] resources for home support. Exam Vital Signs (past 8 hours): - 03/31/23 08:00 Temperature 97.1 F L Pulse Rate 68 Respiratory Rate 16 Blood Pressure 114/62 Pulse Oximetry 99 Oxygen Delivery Method Room Air Oxygen Flow Rate 0 Narrative Exam Narrative: GEN: no acute distress CHEST: clear bilaterally CV: regular rate and rhythm ABD: Soft, nontender EXTR: warm, well perfused Objective Labs 03/30/23 06:00 03/30/23 06:00 [facility] Social History marital status: unmarried,single household members: family and caregiver lives independently: No caregiver/support person: Yes housing: house pets and animals: No education level: high school occupational status: disabled Smoking Status: Never smoker alcohol intake: never Discharge Plan Discharge Plan Patient Disposition: Home Health Service Discharge orders & Medications Prescriptions: New olanzapine 10 mg tablet 10 mg PO BEDTIME Qty: 30 0RF Continued topiramate 25 mg capsule, sprinkle 25 mg PO BID Qty: 180 1RF carbamazepine [Tegretol XR] 200 mg tablet extended release 12 hr 400 mg PO TID Qty: 540 3RF trazodone 100 mg tablet 100 mg PO HS Qty: 90 3RF atorvastatin 20 mg tablet 20 mg PO DAILY lorazepam 0.5 mg tablet 0.5 mg PO BID PRN (Reason: anxiety) 30 Days Qty: 60 2RF paroxetine HCl 40 mg tablet 40 mg PO QDAY Qty: 90 1RF omeprazole 20 mg capsule,delayed release(DR/EC) 20 mg PO DAILY lorazepam 1 mg tablet 1 mg PO BID PRN (Reason: Anxiety) Follow up/Referrals: Stan Fitzgerald MD [Physician] - 2 Weeks Nicolas Collazo MD [Primary Care Provider] - 2 Weeks Visit Report/Discharge Packet Instructions: Seizure Disorder -- Adult, Encephalopathy Stand Alone Forms: Patient Portal/API, Stroke Signs & Symptoms Discharge Data Primary Care Provider: Nicolas Collazo Quality VTE Deep Vein Thrombosis/Pulmonary Embolism Present on Admission: No
[2023-03-31] MEDS: ENOXAPARIN 40 MG/0.4 ML SYRINGE SUBCUT (08:38)
[2023-03-31] MEDS: PARoxetine 20 MG TABLET 40 MG PO (08:38)
[2023-03-31] MEDS: carBAMazepine XR 100 MG TAB 400 MG PO (08:38)
[2023-03-31] MEDS: ATORVASTATIN 20 MG TABLET PO (08:38)
[2023-03-31] MEDS: LORazepam 0.5 MG TABLET PO (08:38)
[2023-03-31] MEDS: TOPIRAMATE 25 MG TABLET PO (08:38)
--- NOTE | 2023-03-31 08:44 | CM.DPC ---
DCP Cont. Reviewed EMR and met with Dr. Fitzgerald and Hospitalist, Dr. Winter, to discuss pt's plan for d/c today. Updated her assigned RN. Pt's niece with pickup pt this morning and d/c home with multiple family members assisting. This ADOPTION COUNSELOR has discussed OP support resources for the family, they state that they will consider them. Provided the printed materials for accessing [facility] for intensive f/u, medication management, and ongoing crisis management. Discussed a plan with the family for them to f/u right away with her PCP, Dr. Collazo, for continued monitoring. Pt will also continue to see Dr. Fitzgerald on an OP basis. No further needs identified for DCP at this time.
== END 2023-03-31 11:00 | disposition home health service (06) | DRG 885 ==
LOC: ED 19:05 → AC 03-15 00:21
PROVIDERS: Emergency Medicine; Family Medicine; Internal Medicine; Student in an Organized Health Care Education/Training Program; Admitting Provider Internal Medicine; Emergency Provider Emergency Medicine; PCP Family Medicine; Referring Provider Emergency Medicine; Visit Provider Internal Medicine
DX: F29 Unspecified psychosis not due to a substance or known physiological condition (principal); T83.511A Infection and inflammatory reaction due to indwelling urethral catheter, initial encounter; N39.0 Urinary tract infection, site not specified; G92.9 Unspecified toxic encephalopathy; F33.9 Major depressive disorder, recurrent, unspecified; R73.9 Hyperglycemia, unspecified; F41.1 Generalized anxiety disorder; G47.09 Other insomnia; K21.9 Gastro-esophageal reflux disease without esophagitis; E78.5 Hyperlipidemia, unspecified; H54.7 Unspecified visual loss; H91.93 Unspecified hearing loss, bilateral; B96.20 Unspecified Escherichia coli [E. coli] as the cause of diseases classified elsewhere
CPT/HCPCS: 36415; 70450; 70551; 70553; 71045; 76705; 80048; 80053; 80305; 80320; 81001; 82140; 82962; 83605; 83690; 83735; 84145; 85025; 85610; 85730; 87040; 87077; 87086; 87186; 93005; 96374; 97161; 99222; 99232; 99284; J0696; J1650; J1815; J1885; J3360